=== PATIENT | female | born 1955 | race Caucasian/White ===

== ENCOUNTER 2020-04-04 09:03 | Outpatient (CLI) | payer MEDICARE, SELFPAY ==
--- NOTE | 2020-04-04 09:24 | EST_ITS ---
Patient Info Name: Mimi Box Age: 65 years : 1955 Gender: Female Ht: 65 in Wt: 137 lbs BSA: 1.69 m2 Technical Quality: Good Exam Date: 04/04/2020 9:57 AM Exam Location: [facility] Pulmonary Patient Status: Outpatient Admit Date: 04/04/2020 Staff Ordering Physician: Ra Valencia DO Suction Drum Drier Operator: Sinea Sanchez RDCS Attending Provider: Ra Valencia DO Referring Physician: Erik SEGURA; Exercise Technologist: Jessica Castrejon RDCS Exercise Physician: Ra Valencia DO Exam Type: CA stress echo Study Info Indications R07.9 - Chest pain, unspecified Two-dimensional, color flow imaging, and Doppler interrogation is performed during the stress echocardiogram. Summary 1. 1. Abnormal Santhosh exercise stress test for ischemic ST changes by ECG criteria. 2. 2. Reduced functional capacity, achieving 6 METs of workload, limited by abrupt onset paroxysmal atrial tachycardia during exercise. 3. 3. Baseline hypertension. 4. 4. Paroxysmal atrial tachycardia. 5. 5. Abnormal stress echocardiogram with basal to mid posterior/inferior hypokinesis. 6. 6. Patient informed of the above results. Stress Echo Findings Left Ventricle Basal to mid posterior and inferior tam are hypokinetic. Left Ventricle Normal LV systolic function, no wall motion abnormality. Protocol: Santhosh Stress ECG Details Stage: REST Duration (min): 1 min : 4 sec Speed (mph): 0.0 Grade (%): 0 HR (bpm): 70 SBP (mmHg): 146 DBP (mmHg): 83 METS: --- Stage: REST Duration (min): 10 min : 5 sec Speed (mph): 0.0 Grade (%): 0 HR (bpm): 84 SBP (mmHg): 146 DBP (mmHg): 83 METS: --- Stage: STAGE 1 Duration (min): 1 min : 0 sec Speed (mph): 1.7 Grade (%): 10 HR (bpm): 104 SBP (mmHg): 146 DBP (mmHg): 83 METS: --- Stage: STAGE 1 Duration (min): 2 min : 0 sec Speed (mph): 1.7 Grade (%): 10 HR (bpm): 113 SBP (mmHg): 146 DBP (mmHg): 83 METS: --- Stage: STAGE 1 Duration (min): 3 min : 0 sec Speed (mph): 1.7 Grade (%): 10 HR (bpm): 117 SBP (mmHg): 175 DBP (mmHg): 90 METS: --- Stage: STAGE 2 Duration (min): 1 min : 0 sec Speed (mph): 2.5 Grade (%): 12 HR (bpm): 137 SBP (mmHg): 175 DBP (mmHg): 90 METS: --- Stage: STAGE 2 Duration (min): 1 min : 16 sec Speed (mph): 0.0 Grade (%): 0 HR (bpm): 153 SBP (mmHg): 175 DBP (mmHg): 90 METS: --- Stage: RECOVERY Duration (min): 0 min : 43 sec Speed (mph): 0.0 Grade (%): 0 HR (bpm): 112 SBP (mmHg): 156 DBP (mmHg): 86 METS: --- Stage: RECOVERY Duration (min): 1 min : 43 sec Speed (mph): 0.0 Grade (%): 0 HR (bpm): 85 SBP (mmHg): 156 DBP (mmHg): 86 METS: --- Stage: RECOVERY Duration (min): 2 min : 43 sec Speed (mph): 0.0 Grade (%): 0 HR (bpm): 82 SBP (mmHg): 165 DBP (mmHg): 96 METS: --- Stage: RECOVERY Duration (min): 3 min : 43 s
== END 2020-04-04 09:04 | disposition home or self-care (01) ==
PROVIDERS: PCP Family Medicine; Visit Provider Internal Medicine Cardiovascular Disease
DX: R07.9 Chest pain, unspecified (principal); R93.1 Abnormal findings on diagnostic imaging of heart and coronary circulation
CPT/HCPCS: 93351

== ENCOUNTER 2020-04-15 00:25 | Outpatient (CLI) | payer MEDICARE, SELFPAY ==
[2020-04-15 18:02] LABS: SARS-CoV-2 RNA PCR Negative
== END 2020-04-15 00:26 | disposition home or self-care (01) ==
LOC: ANHCOVIDDT 00:26
PROVIDERS: PCP Family Medicine; Visit Provider Specialist
DX: Z01.812 Encounter for preprocedural laboratory examination (principal); Z20.828 Contact with and (suspected) exposure to other viral communicable diseases
CPT/HCPCS: 87635; C9803; U0003

== ENCOUNTER 2020-04-18 05:25 | Day surgery (SDC) | payer MEDICARE, SELFPAY ==
[2020-04-15 14:57] VITALS: BMI 22.4
[2020-04-18] VITALS (7 sets, daily range): BP systolic 115–133; BP diastolic 69–81; PULSE 55–70; RESP 14–19; TEMP 36.6; O2SAT 97–100
[2020-04-18 07:22] LABS: Basophils Absolute Auto 0.1 K/mm3 (0.0-0.1); Basophils Percent Auto 1.3 % (0.2-1.2); Eosinophils Absolute Auto 0.1 K/mm3 (0-0.3); Eosinophils Percent Auto 1.5 % (0-4.4); Hematocrit 43.4 % (37.0-47.0); Hemoglobin 14.8 g/dL (12.0-15.0); Immature Granulocyte Absolute 0.01 K/mm3 (0.00-0.031); Immature Granulocyte Percent A 0.2 % (0-0.5); Lymphocytes Absolute Auto 2.09 K/mm3 (0.9-3.2); Mean Corpuscular HGB Conc 34.1 g/dl (32-36); Mean Corpuscular Hemoglobin 33.3 pg (26-34); Mean Corpuscular Volume 97.5 fl (80-100); Mean Platelet Volume 9.3 fl (7.4-10.4); Monocytes Absolute Auto 0.3 K/mm3 (0.1-0.6); Monocytes Percent Auto 6.3 % (2.6-8.5); Neutrophils Absolute Auto 2.1 K/mm3 (1.3-6.7); Neutrophils Percent Auto 45.7 % (45.5-73.1); Platelet Count Result 209 k/mm3 (150-375); Red Blood Count 4.45 M/mm3 (4.2-5.4); Red Cell Distribution Width 12.3 % (11.5-14.5); White Blood Count 4.6 K/mm3 (4.5-10.0)
[2020-04-18 07:31] LABS: INR 0.9; Prothrombin Time 12.2 Seconds (11.1-14.7)
[2020-04-18 07:45] LABS: Anion Gap 13 mmol/L (8-16); Blood Urea Nitrogen 14 mg/dL (7-17); Calcium 10.2 mg/dL (8.4-10.2); Carbon Dioxide 29 mmol/L (22-30); Chloride 100 mmol/L (98-107); Estimated CRCL calculation 54 ml/min; Estimated Glomerular Filt Rate > 60; Glucose 104 mg/dL (65-105); Potassium 3.8 mmol/L (3.4-5.0); Sodium 142 mmol/L (137-145)
--- NOTE | 2020-04-18 08:59 | WPDMODSED ---
Moderate Sedation Note-Pt Data Patient Data Diagnosis: Chest pain abnormal stress test Present Complaint: 65-year-old lady who has been having exertional chest pain for approximately 1 year. Symptoms in November getting worse so she mention them recently to her PCP who referred her to Cardiology and a stress echocardiogram was found be abnormal with exercise-induced ST segment depression and inferior wall motion abnormalities. Angiography has been recommended in this setting Procedure to be performed/Plan: left heart catheterization Allergies Allergy/AdvReac Type Severity Reaction Status Date / Time No Known Allergies Allergy Verified 04/15/20 14:59 Home Medications Medication Instructions Recorded Confirmed Type nitrofurantoin macrocrystal 100 mg 100 mg PO Q12H PRN #60 cap 01/12/20 04/15/20 Rx capsule metoprolol succinate 25 mg 25 mg PO DAILY #30 tablet 04/04/20 04/15/20 Rx tablet,extended release 24 hr aspirin 81 mg tablet,delayed 81 mg PO DAILY 04/08/20 04/15/20 History release atorvastatin 10 mg tablet 10 mg PO DAILY #90 tablet 04/12/20 04/15/20 Rx Bifidobacterium infantis [Align] 4 mg PO DAILY 04/15/20 04/15/20 History cholecalciferol (vitamin D3) 25 mcg PO DAILY 04/15/20 04/15/20 History [Vitamin D3] coenzyme Q10 [Co Q-10] 50 mg PO DAILY 04/15/20 04/15/20 History erythromycin 50 mg PO DAILY 04/15/20 04/15/20 History esomeprazole magnesium [Nexium] 20 mg PO DAILY 04/15/20 04/15/20 History folic acid 1 mg PO DAILY 04/15/20 04/15/20 History psyllium husk [Metamucil] 1 tsp PO DAILY 04/15/20 04/15/20 History valacyclovir 2,000 mg PO Q12H PRN 04/15/20 04/15/20 History Current Medications: Active Medications Sodium Chloride (Normal Saline Iv) 500 mls @ 100 mls/hr IV CONT .Q5H LOVELY Sedation/Anesthesia: No previous sedation/anesthesia problems (including family history). [facility] Social History Social History Smoking status: Never smoker Second hand tobacco smoke exposure: No Alcohol intake: current Drinks per week: 1 Substance use: never Substance use type: does not use Living arrangements: with family Gender identity (if verbalized by the patient): Female Sexual Orientation (if Verbalized by the Patient): Straight or Heterosexual Spiritual care concerns: No Mod Sed Physical Exam Physical Exam Pre Procedural Exam: Normal: Appearance, Throat, Airway, Lungs, Heart Size, Heart Rate, Heart Rhythm, Neuro Exam and Extremities Hours since solid foods: 12 Hours since liquid intake: 12 Internal Medicine - PN: Obj Da Vital Signs Vital Signs: Vital Signs - 24 hr 04/18/20 07:20 Temperature 36.6 C Pulse Rate 70 Respiratory Rate 15 Blood Pressure 128/81 Pulse Oximetry 100 Meds/Results Medications: Active Medications Generic Name Dose Route Start Last Admin Trade Name Freq PRN Reason Stop Dose Admin Sodium Chloride 500 mls @ 100 mls/hr 04/18/20 05:55 Normal Saline Iv IV CONT .Q5H LOVELY Labs CBC & Chem 7: 04/18/20 07:16 04/18/20 07:16 Labs: Laboratory Results - last 24 hr 04/18/20 04/18/20 04/18/20 07:16 07:16 07:16 WBC 4.6 RBC 4.45 Hgb 14.8 Hct 43.4 MCV 97.5 MCH 33.3 MCHC 34.1 RDW 12.3 Plt Count 209 MPV 9.3 Immature Gran % (Auto) 0.2 Neut % (Auto) 45.7 Lymph % (Auto) 45.0 H Randall % (Auto) 6.3 Eos % (Auto) 1.5 Baso % (Auto) 1.3 H Lymph # (Auto) 2.09 Randall # (Auto) 0.3 Eos # (Auto) 0.1 Baso # (Auto) 0.1 Abs Immat Gran (auto) 0.01 Absolute Neuts (auto) 2.1 Absolute Nucleated RBC 0.0 Nucleated RBC % 0.0 PT 12.2 INR 0.9 Sodium 142 Potassium 3.8 Chloride 100 Carbon Dioxide 29 Anion Gap 13 BUN 14 Creatinine 0.80 Estim Creat Clear Calc 54 Estimated GFR > 60 Glucose 104 Calcium 10.2 ASA Classification/Sedation ASA Classification/Sedation ASA Class
--- NOTE | 2020-04-18 09:36 | WPDCARDPROC ---
Cardiac Cath Procedure Note Date of procedure:: 04/18/20 Performing physician:: Damian Triana MD Indication:: chest pain, abnormal stress test Brief clinical history:: 65-year-old woman with episodes of chest pain for about 1 year. A stress echocardiogram was found to be abnormal prompting recommendation for angiography Procedure Procedure performed:: left heart catheterization with left ventriculography and coronary angiography Angio-Seal to right femoral artery Sedation/Medication given:: fentanyl 50 mg Versed 2 mg case start time 9:13 a.m. case end time 9:28 a.m. sedation provided by Marie Baker RN, trained observer Access site:: right femoral Estimated blood loss:: 15-20 cc Procedure note:: patient was brought to the cardiac catheterization lab in the postabsorptive state the right femoral triangle was prepared in the usual fashion. Anesthesia was provided with 1% lidocaine infiltrated locally. Using the modified Seldinger technique the femoral artery was punctured and a 5 [place]uran vascular sheath was placed. After this left heart catheterization was carried out. I used a 5 [place] angled pigtail catheter to measure left-sided hemodynamics and injected LV g in the MOTT projection. After this pullback pressures were document across the aortic valve and the pigtail was then removed. A 5 [place] FL4 catheter was used to engage inject the left coronary artery in multiple projections. The 5 [place] JR4 catheter was used to engage inject the right coronary artery. Following this the cine angiograms were reviewed and the case was terminated. An angiogram was done of the femoral artery through the sheath after which a 6 [place] Angio-Seal device was used to secure hemostasis with a good result. She was taken back to the holding area for post cath recovery in stable condition there was no evidence of a groin hematoma upon leaving the geoscience laboratory technician. Findings:: Hemodynamics: Central aortic pressure was 146/68 left ventricle 140 over 0 end-diastolic pressure of 10 there is no systolic gradient on pullback across the aortic valve. Left ventricle: The LV is of normal size all segments contract appropriately the global ejection fraction is 50-55% by visual estimation there were no wall motion abnormalities left main coronary artery is large caliber widely patent the LAD is a moderate caliber vessel extending down to the apex. The proximal LAD has minimal atherosclerotic narrowing of about 20-30%. The remainder of the LAD is normal. Circumflex is a very large caliber artery giving rise to the marginal branches the circumflex is smooth and angiographically normal. The right coronary artery is medium in caliber it bifurcates early in the 2nd portion it is rather tortuous but otherwise angiographically is free of disease. Conclusion:: 1. Right coronary dominant circulation with no evidence of coronary disease 2. normal left ventricular systolic function 3. Angio-Seal to right femoral artery 4. false positive stress test Damian Triana MD [facility]
--- NOTE | 2020-04-18 10:04 | SUR.PHASEII ---
0940-pt has returned from the refuse laborer after an LHC. No distress noted. AOx4. Groin soft and non-tender, no evidence of bleeding or hematoma noted. Strong right pedal pulse noted. Will continue to monitor.
--- NOTE | 2020-04-18 13:23 | SUR.PHASEII ---
1245-pt given D/C orders and instructions. Questions answered and verbalized understanding. AOx4. Groin soft and non-tender, no evidence of bleeding or hematoma noted. Strong right pedal pulse noted. PIv removed intact. Taken via wheelchair to waiting vehicle. No distress noted or verbalized at time of departure.
== END 2020-04-18 12:45 | disposition home or self-care (01) ==
PROVIDERS: PCP Family Medicine; Visit Provider Specialist
PROC: 4A023N7 Measurement of Cardiac Sampling and Pressure, Left Heart, Percutaneous Approach (ICD-10-PCS; CPT 93452; principal; 2020-04-18 08:30)
DX: R94.39 Abnormal result of other cardiovascular function study (principal); R07.9 Chest pain, unspecified; Z79.82 Long term (current) use of aspirin
CPT/HCPCS: 36415; 80048; 85025; 85610; 93458; C1760; C1887; C1894; G0269; J1644; J2250; J3010; J7040

== ENCOUNTER 2020-04-26 08:19 | Outpatient (CLI) | payer MEDICARE, SELFPAY ==
[2020-04-26 08:47] LABS: Alanine Aminotransferase 17 U/L (4-35); Albumin Level 4.7 g/dL (3.5-5.1); Alkaline Phosphatase 62 U/L (38-126); Anion Gap 9 mmol/L (8-16); Aspartate Amino Transferase 26 U/L (14-36); Bilirubin,Total 0.7 mg/dL (0.2-1.3); Blood Urea Nitrogen 16 mg/dL (7-17); Calcium 9.9 mg/dL (8.4-10.2); Carbon Dioxide 30 mmol/L (22-30); Chloride 103 mmol/L (98-107); Cholesterol 232 mg/dL (0-200); Estimated Glomerular Filt Rate > 60; Glucose 103 mg/dL (65-105); HDL Direct 68 mg/dL; Potassium 3.9 mmol/L (3.4-5.0); Sodium 142 mmol/L (137-145); Triglycerides 120 mg/dL (<150)
[2020-04-26 08:58] LABS: LDL Cholesterol Direct 116 mg/dL
== END 2020-04-26 08:20 | disposition home or self-care (01) ==
PROVIDERS: PCP Family Medicine; Visit Provider Internal Medicine Cardiovascular Disease
DX: E78.5 Hyperlipidemia, unspecified (principal)
CPT/HCPCS: 36415; 80053; 80061; 83735

== ENCOUNTER 2020-06-29 02:54 | Emergency (ER) | payer MEDICARE, SELFPAY ==
--- NOTE | ~2020-06-29 | CT_ITS ---
EXAMINATION: CT abdomen pelvis wo/w con DATE: 06/29/2020 04:32 INDICATION: Gross hematuria. TECHNIQUE: Computed tomography (CT) of the abdomen and pelvis was performed without and with intraven ous contrast using a total of 130 mL Omnipaque-350 intravenous contrast with a double-bolus technique for simultaneous opacification of the renal parenchyma and renal collecting system. Automated exposu re control and iterative reconstruction technique were employed. The dose-length product was 767.64 m Gy-cm. COMPARISON: CT abdomen and pelvis 07/06/2017 FINDINGS: The visualized portions of the lung bases demonstrate mild atelectasis. A calcified right lung nodule is consistent with old granulomatous disease. No pleural effusion. The heart size is normal. No rosie cardial effusion. Calcifications in the liver and spleen are consistent with old granulomatous diseas e. There are changes of cholecystectomy. The pancreas and adrenal glands are normal. There is a 5 mm cyst in right kidney. Left kidney is normal. There is no urolithiasis. The ureters are not well opaci fied in their middle thirds, but are normal. There is a urachal remnant at the anterosuperior aspect of the bladder. There are no dilated loops of bowel. The appendix is not visualized. There are no pat hologically enlarged lymph nodes. There is no free intraperitoneal fluid. There is severe lower lumba r spondylosis. IMPRESSION: 1. No etiology for hematuria. Reviewed, dictated and finalized at location B. 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
[2020-06-29 02:57] VITALS: BP 139/100; PULSE 103; RESP 17; TEMP 36.1; O2SAT 100
--- NOTE | 2020-06-29 03:10 | ED.FEMALEGU ---
HPI - Female Genitourinary General Chief complaint: Urogenital-Female Stated complaint: UTI, blood clots in urine Time Seen by Provider: 06/29/20 02:57 Source: patient Mode of arrival: ambulatory Limitations: no limitations History of Present Illness HPI Narrative: This patent is a 65 year old female who presents for evaluation of hematuria. She states starting 1 week ago she developed increased urinary frequency, dysuria and hematuria. She took some left over macrobid for 4 days after symptoms started . She reports her symptoms resolved on Saturday so she stopped taking the macrobid. This morning she developed increased urinary urgency, dysuria and hematuria. She came to ER because she is seeing clots in her urine. She takes aspirin 81 mg but she denies any blood thinners. She denies abdominal pain, back pain, nausea, vomiting or fever. Related Data Home Medications Medication Instructions Recorded Confirmed aspirin 81 mg tablet,delayed 81 mg PO DAILY 04/08/20 04/25/20 release Align 4 mg PO DAILY 04/15/20 04/25/20 Metamucil 1 tsp PO DAILY 04/15/20 04/25/20 cholecalciferol (vitamin D3) 25 mcg PO DAILY 04/15/20 04/25/20 [Vitamin D3] coenzyme Q10 [Co Q-10] 50 mg PO DAILY 04/15/20 04/25/20 erythromycin 50 mg PO DAILY 04/15/20 04/25/20 esomeprazole magnesium [Nexium] 20 mg PO DAILY 04/15/20 04/25/20 folic acid 1 mg PO DAILY 04/15/20 04/25/20 valacyclovir 2,000 mg PO Q12H PRN 04/15/20 04/25/20 Allergies Allergy/AdvReac Type Severity Reaction Status Date / Time No Known Allergies Allergy Verified 06/29/20 03:09 Review of Systems Review of Systems: All systems reviewed & are unremarkable except as noted in HPI and below Constitutional: Constitutional: Denies chills Respiratory: Respiratory: Denies cough and Denies dyspnea Gastrointestinal: Gastrointestinal: Denies abdominal pain, Denies diarrhea, Denies nausea and Denies vomiting Genitourinary: Genitourinary: Denies abnormal vaginal bleeding, Reports hematuria, Reports nocturia and Reports dysuria Musculoskeletal: Musculoskeletal: Denies back pain [facility] Past Medical History Medical History (Updated 12/09/20 @ 05:46 by Tammy Carrion MD) Dyslipidemia Hypertension Surgical History Surgical History (Updated 06/29/20 @ 05:42 by Tammy Carrion MD) H/O cardiac catheterization Social History Social History Smoking status: Never smoker Second hand tobacco smoke exposure: No Alcohol intake: current Drinks per week: 1 Substance use: never Substance use type: does not use Gender identity (if verbalized by the patient): Female Spiritual care concerns: No Exam Const: General: no acute distress and alert Orientation/consciousness: patient oriented x3 HENMT: Head: atraumatic Face and sinus: face symmetric Mouth: Yes lip normal, Yes oropharynx normal and Yes moist mucous membranes Eyes: EOM: EOMs intact bilaterally Resp: Effort & Inspection: normal respiratory effort, no retractions and no use of accessory muscles Auscultation: clear to auscultation bilaterally Cardio: Rate: regular rate Rhythm: regular rhythm Heart sounds: no murmurs GI: GI Palp: Yes Soft to palpation, No Tenderness to palpation present (GI) and No Guarding due to palpation present (GI) Auscultation: normal bowel sounds Skin: General skin exam: normal color Rashes: no rashes Neuro: General: patient oriented x3 and moves all extremities Extrem: General: normal to inspection Psych: Mental Status: mental status grossly normal Affect: normal affect Course Reevaluation(s) Reevaluation #1: PAtient states she feels better. Her urine is starting to clear. She just urinated and she states its only blood tinged no clots. She no long feels bladder pressure Date: 06/29/20 Time: 05:42 Consultations Consultation #1: I Discussed case with DR. Mckay who agrees patient can be discharge if she is
[2020-06-29 03:35] LABS: Appearance Urine Turbid (Clear); Color Urine Red (Yellow); Specific Grav Ur 1.011 (1.001-1.035)
[2020-06-29 03:38] LABS: Basophils Absolute Auto 0.1 K/mm3 (0.0-0.1); Basophils Percent Auto 0.6 % (0.2-1.2); Eosinophils Absolute Auto 0.2 K/mm3 (0-0.3); Eosinophils Percent Auto 1.8 % (0-4.4); Hematocrit 40.6 % (37.0-47.0); Hemoglobin 13.7 g/dL (12.0-15.0); Immature Granulocyte Absolute 0.02 K/mm3 (0.00-0.031); Immature Granulocyte Percent A 0.2 % (0-0.5); Lymphocytes Absolute Auto 2.68 K/mm3 (0.9-3.2); Lymphocytes Percent Auto 32.8 % (18.3-44.2); Mean Corpuscular HGB Conc 33.7 g/dl (32-36); Mean Corpuscular Hemoglobin 33.4 pg (26-34); Mean Platelet Volume 8.9 fl (7.4-10.4); Monocytes Absolute Auto 0.6 K/mm3 (0.1-0.6); Monocytes Percent Auto 7.1 % (2.6-8.5); Neutrophils Absolute Auto 4.7 K/mm3 (1.3-6.7); Neutrophils Percent Auto 57.5 % (45.5-73.1); Platelet Count Result 206 k/mm3 (150-375); Red Cell Distribution Width 12.5 % (11.5-14.5); White Blood Count 8.2 K/mm3 (4.5-10.0)
[2020-06-29 03:42] LABS: Blood Urine 3+ (Negative); Glucose Urine UA Unable to determine mg/dL (Negative); Protein Urine Unable to determine mg/dL (Negative); pH Urine Unable to determine (5.0-9.0)
[2020-06-29 03:43] LABS: Add Urine Microscopic? YES; Bilirubin Urine Unable to determine (Negative); Ketones Urine Unable to determine mg/dL (Negative); Leukocyte Esterase Ur Unable to determine LEU/UL (Negative); Nitrate Urine Unable to determine (Negative); Urobilinogen Urine Unable to determine mg/dL (<2.0)
[2020-06-29] MEDS: LACTATED RINGERS 1,000 ML 999 ML IV CONT (03:43)
[2020-06-29 03:44] LABS: Bacteria Urine Unable to determine /hpf; RBC Urine >75 /hpf (0-2); Squamous Epithelial Cell Urine Unable to determine /hpf (Few); WBC Urine Unable to determine /hpf (0-3)
[2020-06-29 03:54] LABS: Alanine Aminotransferase 18 U/L (4-35); Albumin Level 4.5 g/dL (3.5-5.1); Alkaline Phosphatase 67 U/L (38-126); Anion Gap 8 mmol/L (8-16); Aspartate Amino Transferase 26 U/L (14-36); Bilirubin,Total 0.6 mg/dL (0.2-1.3); Blood Urea Nitrogen 15 mg/dL (7-17); Calcium 9.8 mg/dL (8.4-10.2); Carbon Dioxide 29 mmol/L (22-30); Chloride 101 mmol/L (98-107); Estimated Glomerular Filt Rate > 60; Glucose 120 mg/dL (65-105); Potassium 3.8 mmol/L (3.4-5.0); Sodium 138 mmol/L (137-145)
[2020-06-29 03:55] LABS: INR 0.9; Partial Thromboplastin Time 22.4 SECONDS (22.3-36.8); Prothrombin Time 12.3 Seconds (11.1-14.7)
[2020-06-29 05:33] VITALS: BP 146/82; PULSE 98; RESP 16; O2SAT 100
== END 2020-06-29 06:10 | disposition home or self-care (01) ==
PROVIDERS: Emergency Provider General Practice; PCP Family Medicine
DX: R31.0 Gross hematuria (principal); I10 Essential (primary) hypertension; E78.5 Hyperlipidemia, unspecified
CPT/HCPCS: 36415; 74178; 80053; 81001; 85025; 85610; 85730; 87086; 96360; 99284; J7120; Q9967

== ENCOUNTER 2020-12-12 09:40 | Outpatient (CLI) | payer MEDICARE, SELFPAY ==
[2020-12-12 10:15] LABS: Cholesterol 235 mg/dL (0-200); HDL Direct 87 mg/dL; Triglycerides 91 mg/dL (<150)
[2020-12-12 10:22] LABS: LDL Cholesterol Direct 101 mg/dL
== END 2020-12-12 09:41 | disposition home or self-care (01) ==
PROVIDERS: Visit Provider Internal Medicine Cardiovascular Disease
DX: E78.5 Hyperlipidemia, unspecified (principal)
CPT/HCPCS: 36415; 80061

== ENCOUNTER 2022-07-05 17:39 | Outpatient (CLI) | payer MEDICARE, SELFPAY ==
--- NOTE | ~2022-07-05 | MM_ITS ---
EXAMINATION: MM screening deena BI w arline HISTORY: Screening TECHNIQUE: Craniocaudal and mediolateral oblique 3-D tomosynthesis images were obtained and synthetic 2-D images were generated. CAD analysis was submitted and interpreted. COMPARISON: Comparison to multiple prior studies sequentially, with oldest reviewed study dated 02/05. BREAST PARENCHYMAL COMPOSITION: The breasts are heterogeneously dense, which may obscure small masses . FINDINGS: Stable benign-appearing breast calcifications. There is no evidence of suspicious mass, pinky cification, or architectural distortion to suggest malignancy in either breast. There has been no trevor picious interval change. IMPRESSION: 1. No mammographic evidence of malignancy. 2. Recommend routine screening mammography in one year. BI-RADS Category 2: Benign finding(s). Reviewed, dictated and finalized at location B. F EXECUTIVE
== END 2022-07-05 17:40 | disposition home or self-care (01) ==
PROVIDERS: PCP Family Medicine; Visit Provider Family Medicine
DX: Z12.31 Encounter for screening mammogram for malignant neoplasm of breast (principal)
CPT/HCPCS: 77063; 77067

== ENCOUNTER 2022-07-07 09:55 | Emergency (ER) | payer MEDICARE, SELFPAY ==
[2022-07-07 10:52] VITALS: BP 136/76; PULSE 71; RESP 16; TEMP 36.1; O2SAT 99
--- NOTE | 2022-07-07 10:56 | ED.FEMALEGU ---
HPI - Female Genitourinary General Chief complaint: Urogenital-Female Stated complaint: uti Time Seen by Provider: 07/07/22 10:56 Source: patient, RN notes reviewed and old records reviewed Mode of arrival: ambulatory Limitations: no limitations History of Present Illness HPI Narrative: 67-year-old female presents to the [facility] with urinary symptoms has a history of chronic UTIs. States that she ran out of her as needed Macrobid. Reports blood in her urine, urinary frequency, urgency and burning with urination. Denies abdominal pain, chest pain. Denies fevers. No CVA tenderness Related Data Home Medications Medication Instructions Recorded Confirmed Bifidobacterium infantis 4 mg 4 mg PO DAILY 04/15/20 07/07/22 capsule (Align) cholecalciferol (vitamin D3) 25 25 mcg PO DAILY 04/15/20 07/07/22 mcg (1,000 unit) capsule (Vitamin D3) esomeprazole magnesium 20 mg 20 mg PO DAILY 04/15/20 07/07/22 capsule,delayed release (Nexium) psyllium husk 3.4 gram/5.4 gram 1 tsp PO DAILY 04/15/20 07/07/22 oral powder (Metamucil) vitamin B complex (B 1 tablet PO DAILY 01/02/22 07/07/22 Complex-Vitamin B12 tablet) Allergies Allergy/AdvReac Type Severity Reaction Status Date / Time No Known Allergies Allergy Verified 07/07/22 11:01 Review of Systems Review of Systems: All systems reviewed & are unremarkable except as noted in HPI and below Constitutional: Constitutional: Reports no additional constitutional complaints Eyes: Eyes: Reports no additional eye complaints ENT: Reports system reviewed and no additional complaints, except as documented Cardiovascular: Cardiovascular: Reports no additional cardiovascular complaints, Denies chest pain and Denies dyspnea Respiratory: Respiratory: Reports no additional respiratory complaints, Denies chest congestion, Denies cough and Denies dyspnea Gastrointestinal: Gastrointestinal: Reports no additional gastrointestinal complaints, Denies abdominal pain, Denies nausea and Denies vomiting Genitourinary: Genitourinary: Reports as per HPI, Reports hematuria and Reports dysuria Musculoskeletal: Musculoskeletal: Reports no additional musculoskeletal complaints Integumentary/Breasts: Skin/Breast: Reports system reviewed and no additional complaints, except as docu Neurologic: Reports system reviewed and no additional complaints, except as documented Psychiatric: Psychiatric: Reports no additional psychiatric complaints Allergic/Immunologic: Allergic/Immunologic: Reports no additional allergic/immunologic complaints PMFSH Past Medical History Medical History Dyslipidemia Hypertension Surgical History Surgical History H/O cardiac catheterization H/O hysterectomy with oophorectomy Social History Social History Smoking status: Never smoker Second hand tobacco smoke exposure: No Alcohol intake: current Drinks per week: 1 Substance use: never Substance use type: does not use Lack of Transportation: No Lack of Food: Never True Current Housing: I Have Housing Concerned About Future Housing: No Difficulty Paying Gas/Electric Bills: No Difficulty Paying for Meds: No Currently Unemployed: No Education: Associate Degree Difficulty w/ Childcare or Family Care: No Gender identity (if verbalized by the patient): Female Sexual Orientation (if Verbalized by the Patient): Straight or Heterosexual Spiritual care concerns: No Agree to blood products: Yes Comments At the time of my signature, I reviewed and agree with the nursing past medical, surgical, social, and family history. There is no relevant family history pertinent to the patient complaint. Exam Const: General: cooperative, healthy appearing, comfortable, no acute distress, well developed, alert and well nourished
== END 2022-07-07 11:10 | disposition home or self-care (01) ==
PROVIDERS: Emergency Provider Nurse Practitioner; PCP Family Medicine
DX: N39.0 Urinary tract infection, site not specified (principal); E78.5 Hyperlipidemia, unspecified; I10 Essential (primary) hypertension
CPT/HCPCS: 81003; 87086; 99213; G0463

== ENCOUNTER 2022-07-24 13:43 | Outpatient (CLI) | payer MEDICARE, SELFPAY ==
--- NOTE | ~2022-07-24 | XR_ITS ---
EXAM: XR abdomen/kub 1V DATE: 07/24/2022 14:12 HISTORY: GROSS HEMATURIA, blood in urine since , denies pain . COMPARISON: None available. FINDINGS: Cholecystectomy clips. Clear lung bases. Normal bowel gas pattern. No organomegaly. Pelvic phlebolithsr. Regional bones and soft tissues normal for age. IMPRESSION: Unremarkable abdominal radiograph findings. Reviewed, dictated and finalized at location K. [employer] MARKET INTELLIGENCE
--- NOTE | ~2022-07-24 | CT_ITS ---
CT of the Abdomen and Pelvis: Indication: Gross hematuria Technique: 2.5 mm axial scans were obtained through the abdomen and pelvis prior to and following in travenous administration of 130 cc of Omnipaque 350. Dose reduction technique was used on this scan b y utilizing automated exposure control and iterative reconstruction technique. The dose-length produc t (DLP) was 893.70 mGy-cm. COMPARISON: 06/29/2020 Findings: Scans through the lung bases are unremarkable. The liver, spleen, pancreas, adrenals and kidneys are within normal limits. Cholecystectomy clips pre sent. No evidence of aortic aneurysm. No lymphadenopathy. No bowel obstruction or bowel wall thickening. There is no evidence to suggest acute appendicitis. Images through the pelvis were performed. Urinary bladder unremarkable. Visualized ureters unremarkab le. No adnexal mass evident. No ascites. Impression: No significant abnormalities seen. No explanation for hematuria identified on this exam. Reviewed, dictated and finalized at location . TICING MD ANESTHESIOLOGIST Impression: No significant abnormalities seen. No explanation for hematuria identified on t his exam.
[2022-07-24 14:18] LABS: Estimated Glomerular Filt Rate > 60
== END 2022-07-24 13:44 | disposition home or self-care (01) ==
PROVIDERS: PCP Family Medicine; Visit Provider Nurse Practitioner Family
DX: R31.0 Gross hematuria (principal)
CPT/HCPCS: 74018; 74178; Q9967

== ENCOUNTER 2023-07-29 08:21 | Outpatient (CLI) | payer MEDICARE, SELFPAY ==
--- NOTE | ~2023-07-29 | NM_ITS ---
EXAMINATION: NM izaiah stress w perfusion DATE: 07/29/2023 11:39 INDICATION: Chest pain. TECHNIQUE: Rest images were obtained following intravenous administration of 10.5 mCi Tc99m tetrofosm in (Myoview). The patient was infused intravenously with Lexiscan (regadenoson). Then, 32.7 mCi Tc99m tetrofosmin (Myoview) was administered intravenously, and stress images were obtained. Data was deangelo nstructed into short axis and horizontal and vertical long axis SPECT images. Gated SPECT images were also obtained. COMPARISON: CT abdomen and pelvis 07/24/2022 FINDINGS: There is no definite reversible or fixed perfusion abnormality to suggest ischemia or infar ction. There is no segmental wall motion abnormality. Left ventricular ejection fraction measures > 70%. IMPRESSION: 1. No definite ischemia or infarct. 2. Normal left ventricular ejection fraction measuring > 70%. Reviewed, dictated and finalized at location A. R MANAGER
--- NOTE | 2023-07-29 09:15 | EST_ITS ---
Patient Info Name: Mimi Box Age: 68 years : 1955 Gender: Female Ht: 65 in Wt: 143 lbs BSA: 1.73 m2 HR: 65 bpm BP: 121 / 84 mmHg Exam Date: 07/29/2023 9:20 AM Exam Location: Echo Lab Patient Status: Outpatient Admit Date: 07/29/2023 Staff Ordering Physician: Ra Valencia DO Attending Provider: Ra Valencia DO Exercise Technologist: Rosemary Mishra RDCS Exercise Physician: Ra Valencia DO Exam Type: CA stress izaiah w NM Study Info A regadenoson stress test was performed. Summary 1. 1. Negative lexiscan stress test for ischemic ST changes by ECG criteria. 2. 2. Stable hemodynamics throughout the test. 3. 3. Nuclear scan to follow and will be reported separately. Please correlate with it. 4. 4. Patient informed of the above results. Protocol: Lexiscan Stress ECG Details Stage: REST Duration (min): 1 min : 18 sec HR (bpm): 65 SBP (mmHg): 121 DBP (mmHg): 84 Stage: REST Duration (min): 9 min : 41 sec HR (bpm): 74 SBP (mmHg): 121 DBP (mmHg): 84 Stage: STAGE 1 Duration (min): 0 min : 59 sec HR (bpm): 103 SBP (mmHg): 142 DBP (mmHg): 74 Stage: RECOVERY Duration (min): 1 min : 0 sec HR (bpm): 104 SBP (mmHg): 142 DBP (mmHg): 74 Stage: RECOVERY Duration (min): 2 min : 0 sec HR (bpm): 98 SBP (mmHg): 142 DBP (mmHg): 74 Stage: RECOVERY Duration (min): 3 min : 0 sec HR (bpm): 89 SBP (mmHg): 128 DBP (mmHg): 74 Stage: RECOVERY Duration (min): 4 min : 0 sec HR (bpm): 84 SBP (mmHg): 128 DBP (mmHg): 74 Stage: RECOVERY Duration (min): 5 min : 0 sec HR (bpm): 81 SBP (mmHg): 128 DBP (mmHg): 75 Stage: RECOVERY Duration (min): 5 min : 35 sec HR (bpm): 80 SBP (mmHg): 128 DBP (mmHg): 75 Rest HR: 74 bpm Peak HR: 104 bpm Rest Sys BP: 121 mmHg Peak Sys BP: 142 mmHg Max Pred HR: 151 bpm % Max Pred HR: 69 % Target HR: 128 bpm Max RPP: 14,768 bpm*mmHg Termination Reason: Completed protocol Cardiac Symptoms: Chest discomfort, Shortness of breath, Lightheaded/pre-syncope Total Time: 1 min : 0 sec Rest [place] BP: 84 mmHg Peak [place] BP: 74 mmHg Total Dose: 0.4 mg Resting ECG Sinus rhythm. Stress ECG No ST changes. Arrhythmias None. Report Signatures
== END 2023-07-29 08:22 | disposition home or self-care (01) ==
PROVIDERS: PCP Family Medicine; Visit Provider Internal Medicine Cardiovascular Disease
DX: R07.9 Chest pain, unspecified (principal)
CPT/HCPCS: 78452; 93017; A9502; J2785

== ENCOUNTER 2024-07-13 09:47 | Outpatient (CLI) | payer MEDICARE, SELFPAY ==
--- NOTE | ~2024-07-13 | MM_ITS ---
EXAMINATION: MM screening [facility] BI w arline HISTORY: Screening TECHNIQUE: Craniocaudal and mediolateral oblique 3-D tomosynthesis images were obtained and synthetic 2-D images were generated. CAD analysis was submitted and interpreted. COMPARISON: 07/05/2022 and dating back to 02/06/2016 BREAST PARENCHYMAL COMPOSITION: The breasts are heterogeneously dense, which may obscure small masses . FINDINGS: Bulky and punctate calcifications detected bilaterally, stable and benign in appearance. Stable parenchymal pattern without suspicious microcalcifications, architectural distortion, discrete masses or significant asymmetry. IMPRESSION: 1. No mammographic evidence of malignancy. 2. Recommend routine screening mammography in one year. BI-RADS Category 2: Benign finding(s). Reviewed, dictated and finalized at location A. ECTRIC MACHINE OPERATOR
== END 2024-07-13 09:48 | disposition home or self-care (01) ==
LOC: ANHIMG 09:48
PROVIDERS: PCP Family Medicine; Visit Provider Student in an Organized Health Care Education/Training Program
DX: Z12.31 Encounter for screening mammogram for malignant neoplasm of breast (principal)
CPT/HCPCS: 77063; 77067

== ENCOUNTER 2024-08-03 08:15 | Outpatient (CLI) | payer MEDICARE, SELFPAY ==
--- NOTE | ~2024-08-03 | DEXA_ITS ---
Bone Density Report Name: LORI SHELL Age: 69 Sex: Female Ethnicity: White Date of : 1955 Indication: postmenopausal; screening for osteoporosis; Referring Provider: CHYNA LAMBERT Study: Bone densitometry was performed. Exam Date: August 03, 2024 Accession number: [id number] Bone Density: Region BMD T-score Z-score Classification AP Spine(L1-L4) 0.810 -2.2 0.0 Osteopenia Femoral Neck (Left) 0.637 -1.9 -0.1 Osteopenia Total Hip (Left) 0.791 -1.2 0.3 Osteopenia Femoral Neck (Right) 0.630 -2.0 -0.2 Osteopenia Total Hip (Right) 0.808 -1.1 0.4 Osteopenia Total Hip Mean 0.800 -1.2 0.4 Osteopenia World Health Organization criteria for BMD impression classify patients as: Normal (T-score at or above -1.0), Osteopenia (T-score between -1.0 and -2.5), or Osteoporosis (T-score at or below -2.5). 10-year Fracture Risk(1): Major Osteoporotic Fracture 11% Hip Fracture 2.2% Reported Risk Factors: [place] (), Neck BMD=0.630, BMI=24.0 (1) FRAX(R) Version 3.08. Fracture probability calculated for an untreated patient. Fracture probability may be lower if the patient has received treatment. Previous Exams: Region Exam Age BMD T-score BMD Change BMD Change Date g/cm2 vs Baseline vs Previous AP Spine (L1-L4) 08/03/2024 69 0.810 -2.2 -0.158 (-16.3% -0.158 (-16.3% 02/06/2016 60 0.968 -0.7 Total Hip(Left) 08/03/2024 69 0.791 -1.2 -0.047 (-5.6%) -0.047 (-5.6%) 02/06/2016 60 0.838 -0.9 Total Hip(Right) 08/03/2024 69 0.808 -1.1 -0.036 (-4.3%) -0.036 (-4.3%) 02/06/2016 60 0.844 -0.8 *Denotes significance at 95% confidence level, LSC for AP Spine = 0.022 g/cm2, LSC for Total Hip = 0.027 g/cm2 Impression: The patient has low bone mass, based on the Total Spine T-score. The patient has an estimated ten-year risk of hip fracture of 2.2% and an estimated ten-year risk of major fracture of 11%, based on the WHO FRAX algorithm. The BMD for the AP Spine (L1-L4) decreased, changing by -16.3% since the last DXA exam. The BMD for the Total Hip(Left) decreased, changing by -5.6% since the last DXA exam. The BMD for the Total Hip(Right) decreased, changing by -4.3% since the last DXA exam. Discussion: BONE DENSITY IS LOW AT ONE OR MORE SKELETAL SITES. This patient's lowest T-score is low at one or more skeletal sites. It meets the World Health Organization's (WHO) criteria for ?low bone mass? (T-score between -1.0 and -2.5). The patient's 10-year risk of fracture as calculated by FRAX is less than the threshold where pharmacological therapy is recommended by the National Osteoporosis Foundation (NOF). However, all treatment decisions require clinical judgment and consideration of individual patient factors, including patient preferences, comorbidities, previous drug use, risk factors not captured in the FRAX model (e.g., frailty, falls, vitamin D deficiency, increased bone turnover, interval significant decline in bone density) and possible under or overestimation of fracture risk by FRAX. The patient should follow a healthful lifestyle (good nutrition with adequate calcium and vitamin D, and appropriate weight-bearing exercise). Follow-Up: Consider repeating this study in 2 years to reassess this patient's status, or sooner if there is some new clinical indication. Reported by: NATALIE on 08/03/2024 8:55:00 AM. Reviewed, dictated and finalized at location AKirk MATHIAS
== END 2024-08-03 08:16 | disposition home or self-care (01) ==
LOC: ANHIMG 08:20
PROVIDERS: PCP Family Medicine; Visit Provider Student in an Organized Health Care Education/Training Program
DX: M85.89 Other specified disorders of bone density and structure, multiple sites (principal); Z78.0 Asymptomatic menopausal state
CPT/HCPCS: 77080

== ENCOUNTER 2024-09-08 09:48 | Outpatient (CLI) | payer MEDICARE, SELFPAY ==
--- NOTE | ~2024-09-08 | XR_ITS ---
EXAMINATION: XR knee RT min 4V DATE: 09/08/2024 10:22 INDICATION: Right knee pain. TECHNIQUE: 4 views of right knee including standing views were obtained. COMPARISON: None. FINDINGS: Alignment is normal. No fracture. There is mild osteoarthritis of medial and patellofemoral compartments. No knee joint effusion. IMPRESSION: 1. Mild right knee osteoarthritis. Reviewed, dictated and finalized at location A. ITE SANDBLASTER APPRENTICE
--- OUTSIDE RECORDS SUMMARY | 2024-09-08 10:02 | XMS_ITS | Clinical Summary ---
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
--- OUTSIDE RECORDS SUMMARY | 2024-09-08 10:02 | XMS_ITS | Continuity of Care Document ---
Author Organization [facility] Address [address] [place] [address] Phone Care Team Providers Care Online Project Manager Name Role Phone Duncan Jorge MD Unavailable Unavailable Advance Directives Directive Yes / No Effective Date File Name No Information Encounters Encounter Description Practice Location Reason(s) For Visit Diagnoses Date Provider Providers Copied on Encounter [facility], [address], [place], [place], [id number], tel:[phone] [facility] No Information Ania Song. [address] , [facility] [address], [place], [address], [place]. tel:[phone] [employer] [facility], [address], [place], [place], [address], tel:[phone] [facility] Family history of pancreatic cancer Ania Song. [address], [address], [place], [address], . tel: [phone] Family History Family Member Type Diagnosis Age At Onset No Information Payers Payer name Insurance type Covered alliance party ID Authoriza tion(s) No Information Social History Type Description Quantity Date Captured Comments Sex Female Smoking Status No Information Chief Complaint And Reason For Visit No Information Reason For Referral Reason For Referral No Information History Of Present Illness Encounter Date Complaint History Of Prese nt Illness No Information Functional Status Date Functional Assessmen t No Information Instructions Date Instruction Additional Infor mation No Information Assessments Type Assessment Date No Information Patient Care Teams Name Effective Dates (start - stop) Status Members No Information
--- OUTSIDE RECORDS SUMMARY | 2024-09-08 10:02 | XMS_ITS | Encounter Summary ---
Author Organization [facility] Address 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 Gender Identity Not on file Sexual Orientation Not on file documented as of this encounter Plan of Treatment Not on file documented as of this encounter Procedures Procedure Name Priority Date/Time Associated Diagnosis Comments HEMOGLOBIN AND HEMATOCRIT Routine 07/13/2008 5:20 AM LOCKSTITCH ZIPPER SETTER PATHOLOGY Routine 07/12/2008 11:32 AM LOCKSTITCH ZIPPER SETTER HEMOGLOBIN AND HEMATOCRIT Routine 07/01/2008 2:20 PM LOCKSTITCH ZIPPER SETTER BASIC METABOLIC PANEL Routine 07/01/2008 2:20 PM LOCKSTITCH ZIPPER SETTER TYPE AND SCREEN Routine 07/01/2008 1:55 PM LOCKSTITCH ZIPPER SETTER documented in this encounter Results * (ABNORMAL) HEMOGLOBIN AND HEMATOCRIT (07/13/2008 5:20 AM LOCKSTITCH ZIPPER SETTER) HEMOGLOBIN 11.6(L) 11.8 - 14.8 g/dL [facility] HEMATOCRIT 34.5(L) 35.5 - 44.0 % [facility] Blood specimen (specimen) 07/13/2008 5:20 AM LOCKSTITCH ZIPPER SETTER 07/13/2008 5:41 AM LOCKSTITCH ZIPPER SETTER us Bhavani Singleton MD HEMATOLOGY ORDERABLES Final Re sult INTERFACE SYSTEM Refer to clinic/hospital department [facility] CLIA# [id number] [address] [place] [address] * PATHOLOGY (07/12/2008 11:32 AM LOCKSTITCH ZIPPER SETTER) FINAL REPORT [facility] [address], [place] [address] Patient: MIMI BOX : 1955 Procedure Date: 07/12/2008 Accession Date: 07/12/2008 Case No: [id number] Ordering Dr: BHAVANI SINGLETON Case types AW, BW, FW, NW and SH are performed by [facility] [place], [place], [place] SURGICAL PATHOLOGY & NON-GYNECOLOGIC CYTOPATHOLOGY REPORT DIAGNOSIS UTERUS, ENDOMETRIUM, SUPRACERVICAL HYSTERECTOMY: - ATROPHIC PATTERN. - ENDOMETRIAL POLYPS. UTERUS, MYOMETRIUM, SUPRACERVICAL HYSTERECTOMY: - ADENOMYOSIS. - LEIOMYOMAS. OVARY AND FALLOPIAN TUBE, LEFT, EXCISION: - NO SIGNIFICANT HISTOPATHOLOGIC ABNORMALITIES. SKIN AND SOFT TISSUE, NOT OTHERWISE SPECIFIED, EXCISION: - SCAR. Specimen Description: Uterus, left fallopian tube and ovary. Operative Procedure: Abdominal hysterectomy; supracervical LSO. Patient Information/Histor y/Diagnosis: Menorrhagia and fibroids. Gross: Received in a single container, labeled Mimi Box., uterus, left fallopian tube and ovary is a 63-g, 5.0 x 4.5 x 4.0-cm uterus without a cervix, and an attached ovary and fallopian tube. The serosa is loving-pink, smooth and glistening. The margin is inked. The uterus is bivalved to reveal a 3.8 x 2.2-cm triangular endometrial cavity. There is no definite endocervix. The uterus is serially sectioned to reveal a loving, endometrium that is 0.1 cm in thickness, and a pink, mildly trabeculated myometrium with no gross lesions. The ovary measures 3.1 x 0.8 x 0.7 cm and the attached fimbriated fallopian tube is 3.0 cm in length x 0.3 cm in diameter. The ovarian capsule is loving, nodular and intact. On sectioning, the ovary has loving, unremarkable cut surfaces. The fallopian tube is sectioned to reveal pinpoint unremarkable lumen. Also present is a 14.5 x 2.8-cm loving unoriented skin ellipse, excised to a depth of 2.0 cm. The skin surface bears a well-healed linear scar that measures 11.0 cm in length. The tissue is inked blue at its margin and sectioned to reveal unremarkable fibroadipose tissue cut surface. Knowledge Management Consultant sections are submitted in cassettes a follows: A1 and A2, lower uterine segment sections; A3-A4- endomyometrium with serosa; A5-ovary and fallopian tube; A6-A7-loose skin. [facility] 07.12.2008 06:27 pm Microscopic: The slides are labeled [id number] and Mimi Box. The uterus has been transected in the lower uterine segment. The cervix is not included in the specimen. The endometrium is atrophic with endometrial polyps. Foci of adenomyosis and leiomyomas, one partially transected, are present in the myometrium. There are no significant histopathologic abnormalities in the left ovary or fallopian tube. Sections of the skin show a scar. [facility] 07.13.2008 10:49 am Staging Form: No. ELECTRONIC SIGNATURE FOR HANNAH FUENTES M.D.- 07/13/08 02:48 pm INTERFACE SYSTEM 07/12/2008 11:3 2 AM LOCKSTITCH ZIPPER SETTER us Bhavani Singleton MD PATHOLOGY/CYTOLOGY ORDERABLES Final Result INTERFACE SYSTEM Refer to clinic/hospital department * (ABNORMAL) BASIC METABOLIC PANEL (07/01/2008 2:20 PM LOCKSTITCH ZIPPER SETTER) CALCIUM 9.8 8.6 - 10.2 mg/dL [facility] CO2 25 22 - 30 mmol/L [facility] CREATININE 0.81 0.51 - 0.95 mg/dL [facility] POTASSIUM 4.4 3.5 - 4.9 mmol/L [facility] BUN 22(H) 6 - 20 mg/dL [facility] CHLORIDE 104 96 - 108 mmol/L [facility] GLUCOSE 92 65 - 99 mg/dL [facility] SODIUM 140 135 - 145 mmol/L [facility] GFR, >60 >=60 mL/min/1.7 sq meter [facility] GFR >60 >=60 mL/min/1.7 sq meter [facility] Comment: Modification of Diet in Renal Disease (MDRD) study formula. Estimated GFR rate interpretative information for both Americans and non- Americans is available on the [facility] Intranet at: [email or web address] Select: Lab Policies and Procedures Select: Reference Ranges - GFR Blood specimen (specimen) 07/01/2008 2:20 PM LOCKSTITCH ZIPPER SETTER 07/01/2008 4:18 PM LOCKSTITCH ZIPPER SETTER Result [facility] Bhavani Singleton MD CHEMISTRY ORDERABLES Edited INTERFACE SYSTEM Refer to clinic/hospital department [facility] CLIA# [id number] [address] [facility] [place] [address] * HEMOGLOBIN AND HEMATOCRIT (07/01/2008 2:20 PM LOCKSTITCH ZIPPER SETTER) HEMOGLOBIN 13.8 11.8 - 14.8 g/dL [facility] HEMATOCRIT 41.3 35.5 - 44.0 % [facility] Blood specimen (specimen) 07/01/2008 2:20 PM LOCKSTITCH ZIPPER SETTER 07/01/2008 4:18 PM LOCKSTITCH ZIPPER SETTER Bhavani Singleton MD HEMATOLOGY ORDERABLES Final Re sult Performing Organization Address City/[facility] de Phone Number INTERFACE SYSTEM Refer to clinic/hospital department [facility] CLIA# [id number] [address] [place] [address] * TYPE AND SCREEN (07/01/2008 1:55 PM LOCKSTITCH ZIPPER SETTER) HISTORY CHECK No Historical ABO/Rh [facility] SPECIMEN LIFE 3 days from OR date [facility] ABO/RH TYPE A Negative [facility] ANTIBODY SCREEN Negative [facility] Blood specimen (specimen) 07/01/2008 1:55 PM LOCKSTITCH ZIPPER SETTER us Bhavani Singleton MD BLOOD BANK ORDERABLES Edited Performing Organization Address [facility] Co de Phone Number INTERFACE SYSTEM Refer to clinic/hospital department [facility] CLIA# [id number] [address] [place] [address] documented in this encounter Visit Diagnoses Diagnosis Postmenopausal bleeding documented in this encounter
--- OUTSIDE RECORDS SUMMARY | 2024-09-08 10:04 | XMS_ITS | Referral Summary ---
Author Organization [facility] Address [address] [place] [address] Care Team Providers Care Billing Auditor Name Role Phone Unavailable Primary Care Provider Unavailabl e Source Comments [facility],non-owned Affiliates and Associated Physician Practices is amultiple site organization consisting of ambulatory clinics and hospital sitesin [place], [place], [place] and [place]. This disclosure is being madepursuant to the Care Everywhere program and may not contain all information available regarding this patient. Last updated 18.[facility] Social History Tobacco Use Types Packs/Day Years Used Date Smoking Tobacco: Never Assessed Sex and Gender Information Value Date Recorded Sex Assigned at Not on file Gender Identity Not on file Sexual Orientation Not on file Plan of Treatment Not on file
--- OUTSIDE RECORDS SUMMARY | 2024-09-08 10:04 | XMS_ITS | Patient Health Summary ---
Author Organization [facility] Address [address] [place] [address] Care Team Providers Care Whirley Operator Name Role Phone Unavailable Primary Care Provider Unavailabl e Note from [facility],non-owned Affiliates and Associated Physician Practices is amultiple site organization consisting of ambulatory clinics and hospital sitesin [place], [place], [place] and [place]. This disclosure is being madepursuant to the Care Everywhere program and may not contain all information available regarding this patient. Last updated 18.[facility] Social History Tobacco Use Types Packs/Day Years Used Date Smoking Tobacco: Never Assessed Sex and Gender Information Value Date Recorded Sex Assigned at Not on file Gender Identity Not on file Sexual Orientation Not on file Procedures * PATH CONSULT ON REFERRED CASE(Performed 08/02/2022) Performed for Illness, unspecified Results * PATH CONSULT ON REFERRED CASE (08/02/2022 7:28 AM BOOM TRUCK DRIVER) Final Diagnosis Urinary bladder, biopsy (OSC: [id number]; 08/02/2022): - Minimal chronic inflammation with rare eosinophils (1 eosinophil per high power field, 1 HPF = 0.238 mm2) 08/08/2022 10:54 AM [facility]3] PATHOLOGY LAB Microscopic Description and Comment Microscopic examination substantiates the final diagnosis. A single eosinophil is seen in the biopsy, which has an area of approximately 0.5 mm2. The urothelium is unremarkable. 08/08/2022 10:54 AM [facility] Clinical History ERYTHEMA, HUNNER'S ULCER, COUNT EOSINOPHILS 08/08/2022 10:54 AM [facility] Materials Received One prepared slide received from [facility] [id number]. All material will be returned. 08/08/2022 10:54 AM [facility]3] PATHOLOGY LAB Disclaimer The performance characteristics of all immunohistochemical and indirect immunofluorescence stains (if any) cited in this report were determined by the Histopathology Laboratory of [facility]. Some of these tests were developed by our own laboratory and have not been cleared or approved by the US Food and Drug Administration. The FDA does not require this test to go through premarket FDA review. These tests are used for clinical purposes. They should not be regarded as investigational or for research. This laboratory is certified under the Clinical Laboratory Improvement Amendments (CLIA) as qualified to perform high complexity clinical laboratory testing. This case has been personally reviewed and interpreted by the attending (teaching) pathologist. 08/08/2022 10:54 AM [facility]] PATHOLOGY LAB Case Report Surgical Pathology Report Case: [id number] Authorizing Provider: Ruby Reza MD Collected: 08/02/2022 07:28 AM Ordering Location: [facility] Pathology Lab Received: 08/07/2022 07:28 AM Pathologist: Carli Baker MD Specimen: Slide Consultation 08/08/2022 10:54 AM [facility]] PATHOLOGY LAB Embedded Images 08/08/2022 10:54 AM [facility]3] PATHOLOGY LAB Pathology/Cytolo gy SURGICAL PATHOLOGY CONSULTATION AND REPORT ON REFERRED SLIDES PREPARED ELSEWHERE / Unknown 08/02/2022 7:28 AM BOOM TRUCK DRIVER 08/07/2022 7:28 AM [facility] Ruby Reza MD LAB - PATHOLOGY/CYTO LOGY ORDERABLES Performing Organization Address City/State/[facility] Co de Phone Number [facility] [address] [place] [address], [facility] [phone]
--- OUTSIDE RECORDS SUMMARY | 2024-09-08 10:04 | XMS_ITS | Encounter Summary ---
Author Organization [facility] Address [address] [place] [address] Care Team Providers Care Slat Basket Maker Helper Machine Name Role Phone Unavailable Primary Care Provider Unavailabl e Encounter Details Date Type Department Care Team (Late st Contact Info) Description 08/07/2022 Lab Requisition [facility] [address] [place] [address] Ruby Reza MD [address] [place], [place] [id number] Illness, unspecified Social History Tobacco Use Types Packs/Day Years Used Date Smoking Tobacco: Never Assessed Sex and Gender Information Value Date Recorded Sex Assigned at Not on file Gender Identity Not on file Sexual Orientation Not on file documented as of this encounter Plan of Treatment Not on file documented as of this encounter Procedures Procedure Name Priority Date/Time Associated Diagnosis Comments PATH CONSULT ON REFERRED CASE Routine 08/02/2022 7:28 AM FAST FOOD SUPERVISOR Illness, unspecified documented in this encounter Results * PATH CONSULT ON REFERRED CASE (08/02/2022 7:28 AM FAST FOOD SUPERVISOR) Final Diagnosis Urinary bladder, biopsy (OSC: [id number]; 08/02/2022): - Minimal chronic inflammation with rare eosinophils (1 eosinophil per high power field, 1 HPF = 0.238 mm2) 08/08/2022 10:54 AM [facility] Microscopic Description and Comment Microscopic examination substantiates the final diagnosis. A single eosinophil is seen in the biopsy, which has an area of approximately 0.5 mm2. The urothelium is unremarkable. 08/08/2022 10:54 AM FAST FOOD SUPERVISOR [facility] Clinical History ERYTHEMA, HUNNER'S ULCER, COUNT EOSINOPHILS 08/08/2022 10:54 AM [facility] Materials Received One prepared slide received from [facility] [id number]. All material will be returned. 08/08/2022 10:54 AM [facility] Disclaimer The performance characteristics of all immunohistochemical and indirect immunofluorescence stains (if any) cited in this report were determined by the Histopathology Laboratory of [facility]. Some of these tests were developed by [...] the attending (teaching) pathologist. 08/08/2022 10:54 AM [facility] Case Report Surgical Pathology Report Case: [id number] Authorizing Provider: Ruby Reza MD Collected: 08/02/2022 07:28 AM Ordering Location: [facility] Path[facility] Lab Received: 08/07/2022 07:28 AM Pathologist: Carli Baker MD Specimen: Slide Consultation 08/08/2022 10:54 AM [facility] Embedded Images 08/08/2022 10:54 AM [facility] Pathology/Cytolo gy SURGICAL PATHOLOGY CONSULTATION AND REPORT ON REFERRED SLIDES PREPARED ELSEWHERE / Unknown 08/02/2022 7:28 AM FAST FOOD SUPERVISOR 08/07/2022 7:28 AM [facility] Ruby Reza MD LAB - PATHOLOGY/CYTO LOGY ORDERABLES Performing Organization Address City/State/[facility] Co de Phone Number [facility]Y LAB [address] [phone] documented in this encounter Visit Diagnoses Diagnosis Illness, unspecified documented in this encounter
--- OUTSIDE RECORDS SUMMARY | 2024-09-08 10:04 | XMS_ITS | Clinical Summary ---
Author Organization [facility] Address [address] [facility] [place] [place] [address] Care Team Providers Care Agricultural Services Director Name Role Phone Unavailable Primary Care Provider Unavailabl e Source Comments [facility],non-owned Affiliates and Associated Physician Practices is amultiple site organization consisting of ambulatory clinics and hospital sitesin [place], [place], [place] and [place]. This disclosure is being madepursuant to the Care Everywhere program and may not contain all information available regarding this patient. Last updated 18.[facility] [employer] Social History Tobacco Use Types Packs/Day Years Used Date Smoking Tobacco: Never Assessed Sex and Gender Information Value Date Recorded Sex Assigned at Not on file Gender Identity Not on file Sexual Orientation Not on file Plan of Treatment Health Maintenance Due Date Last Done Comments BONE DENSITY TESTING 1955 COLOGUARD (AGES 45-75) - COL ON CA SCREENING 1955 COLON MONITORING 1955 COLONOSCOPY - COLON CA SCREENING 1955 CT COLONOGRAPHY - COLON CA SCREENING 1955 Colorectal Cancer Screening 1955 FIT - COLON CA SCREENING 1955 FLEX SIG - COLON CA SCREENING 1955 LIPID TESTING 1955 MAMMOGRAM 1955 HEPATITIS C SCREENING 03/21/1972 DTAP/TDAP/TD VACCINES (1 - Tdap) 1973 PNEUMOCOCCAL VACCINE 50+ (1 of 1 - PCV) 2004 ZOSTER VACCINE (1 of 2) 2004 COVID-19 VACCINE ( - 2023-2 5 season) 2024 INFLUENZA VACCINE (#1) 2024 DEPRESSION SCREENING 07/22/2024 Respiratory Syncytial Virus (RSV) Vaccine Pt: or over 60 yrs (1 - 1-dose 75+ series) 2029 HEPATITIS B VACCINE Aged Out No longe r eligible based on patient's age to complete this topic HIB VACCINE Aged Out No longer eligi ble based on patient's age to complete this topic HPV VACCINE Aged Out No longer eligi ble based on patient's age to complete this topic MENINGOCOCCAL (Group B) VACCINE Aged Out No longer eligible based on patient's age to complete this topic MENINGOCOCCAL VACCINE Aged Out No simone alcides eligible based on patient's age to complete this topic
== END 2024-09-08 09:49 | disposition home or self-care (01) ==
PROVIDERS: PCP Family Medicine; Visit Provider Family Medicine
DX: M17.11 Unilateral primary osteoarthritis, right knee (principal)
CPT/HCPCS: 73564

== ENCOUNTER 2024-10-01 10:14 | Outpatient (CLI) | payer MEDICARE, SELFPAY ==
--- NOTE | ~2024-10-01 | US_ITS ---
EXAMINATION: US venous doppler LE RT DATE: 10/01/2024 11:12 INDICATION: Right lower limb pain. TECHNIQUE: Grayscale ultrasound images without and with compression and Doppler ultrasound images of the right lower extremity veins were obtained. COMPARISON: None. FINDINGS: The visualized portions of right common femoral vein, profunda (deep) femoral vein, femoral vein, pop liteal vein, peroneal veins, posterior tibial veins, and greater saphenous vein outflow are patent. T here is a small Watkins's cyst. IMPRESSION: 1. No deep venous thrombosis. 2. Small Watkins's cyst. Reviewed, dictated and finalized at location B.
--- OUTSIDE RECORDS SUMMARY | 2024-10-01 11:49 | XMS_ITS | Encounter Summary ---
Author Organization [facility] Address [address] [place] [address] Care Team Providers Care Lime Burner Name Role Phone Unavailable Primary Care Provider Unavailabl e Encounter Details Date Type Department Care Team (Latest Contact Info) Description 06/22/2008 Outpatient Historical [facility] [place] [address] [facility] [place] [address] Postmenopausal Bleeding Social History Tobacco Use Types Packs/Day Years Used Date Smoking Tobacco: Never Assessed Comments Unknown Sex and Gender Information Value Date Recorded Sex Assigned at Not on file Legal Sex Female 2:55 AM SPECIAL EFFECTS DESIGNER Gender Identity Not on file Sexual Orientation Not on file documented as of this encounter Plan of Treatment Not on file documented as of this encounter Procedures Procedure Name Priority Date/Time Associated Diagnosis Comments HEMOGLOBIN AND HEMATOCRIT Routine 07/13/2008 5:20 AM SPECIAL EFFECTS DESIGNER PATHOLOGY Routine 07/12/2008 11:32 AM SPECIAL EFFECTS DESIGNER HEMOGLOBIN AND HEMATOCRIT Routine 07/01/2008 2:20 PM SPECIAL EFFECTS DESIGNER BASIC METABOLIC PANEL Routine 07/01/2008 2:20 PM SPECIAL EFFECTS DESIGNER TYPE AND SCREEN Routine 07/01/2008 1:55 PM SPECIAL EFFECTS DESIGNER documented in this encounter Results * (ABNORMAL) HEMOGLOBIN AND HEMATOCRIT (07/13/2008 5:20 AM SPECIAL EFFECTS DESIGNER) HEMOGLOBIN 11.6(L) 11.8 - 14.8 g/dL [facility] HEMATOCRIT 34.5(L) 35.5 - 44.0 % [facility] Blood specimen (specimen) 07/13/2008 5:20 AM SPECIAL EFFECTS DESIGNER 07/13/2008 5:41 AM SPECIAL EFFECTS DESIGNER us Bhavani Singleton MD HEMATOLOGY ORDERABLES Final Re sult INTERFACE SYSTEM Refer to clinic/hospital department [facility] CLIA# [id number] [address] [place] [address] * PATHOLOGY (07/12/2008 11:32 AM SPECIAL EFFECTS DESIGNER) FINAL REPORT [facility] [place] [place] [address] [place], [place] [address] Patient: MIMI BOX : 1955 Procedure Date: 07/12/2008 Accession Date: 07/12/2008 Case No: [id number] Ordering Dr: BHAVANI SINGLETON Case types AW, BW, FW, NW and SH are performed by [facility] [place] [place], [place] SURGICAL PATHOLOGY & NON-GYNECOLOGIC CYTOPATHOLOGY REPORT [...] to reveal unremarkable fibroadipose tissue cut surface. Sheep Sticker sections are submitted in cassettes a follows: A1 and A2, lower uterine segment sections; A3-A4- endomyometrium with serosa; A5-ovary and fallopian tube; A6-A7-loose skin. [facility] 07.12.2008 06:27 pm Microscopic: The slides are labeled [id number] and Mimi Box. The uterus has been [...] pm INTERFACE SYSTEM 07/12/2008 11:3 2 AM SPECIAL EFFECTS DESIGNER us Bhavani Singleton MD PATHOLOGY/CYTOLOGY ORDERABLES Final Result INTERFACE SYSTEM Refer to clinic/hospital department * (ABNORMAL) BASIC METABOLIC PANEL (07/01/2008 2:20 PM SPECIAL EFFECTS DESIGNER) CALCIUM 9.8 8.6 - 10.2 mg/dL [facility] CO2 25 22 - 30 mmol/L [facility] CREATININE 0.81 0.51 - 0.95 mg/dL [facility] POTASSIUM 4.4 3.5 - 4.9 mmol/L [facility] BUN 22(H) 6 - 20 mg/dL [facility] CHLORIDE 104 96 - 108 mmol/L [facility] GLUCOSE 92 65 - 99 mg/dL [facility] SODIUM 140 135 - 145 mmol/L [facility] GFR, >60 >=60 mL/min/1.7 sq meter [facility] GFR >60 >=60 mL/min/1.7 sq meter [facility] Comment: Modification of Diet in Renal Disease (MDRD) study formula. Estimated GFR rate interpretative information for both Americans and non- Americans is available on the [facility] Intranet at: [email or web address] Select: Lab Policies and Procedures Select: Reference Ranges - GFR Blood specimen (specimen) 07/01/2008 2:20 PM SPECIAL EFFECTS DESIGNER 07/01/2008 4:18 PM SPECIAL EFFECTS DESIGNER Result [facility] Bhavani Singleton MD CHEMISTRY ORDERABLES Edited INTERFACE SYSTEM Refer to clinic/hospital department [facility] CLIA# [id number] [address] [facility] [place] [address] * HEMOGLOBIN AND HEMATOCRIT (07/01/2008 2:20 PM SPECIAL EFFECTS DESIGNER) HEMOGLOBIN 13.8 11.8 - 14.8 g/dL [facility] HEMATOCRIT 41.3 35.5 - 44.0 % [facility] Blood specimen (specimen) 07/01/2008 2:20 PM SPECIAL EFFECTS DESIGNER 07/01/2008 4:18 PM SPECIAL EFFECTS DESIGNER Bhavani Singleton MD HEMATOLOGY ORDERABLES Final Re sult Performing Organization Address City/[facility] de Phone Number INTERFACE SYSTEM Refer to clinic/hospital department [facility] CLIA# [id number] [address] [place] [address] * TYPE AND SCREEN (07/01/2008 1:55 PM SPECIAL EFFECTS DESIGNER) HISTORY CHECK No Historical ABO/Rh [facility] SPECIMEN LIFE 3 days from OR date [facility] ABO/RH TYPE A Negative [facility] ANTIBODY SCREEN Negative [facility] Blood specimen (specimen) 07/01/2008 1:55 PM SPECIAL EFFECTS DESIGNER us Bhavani Singleton MD BLOOD BANK ORDERABLES Edited Performing Organization Address [facility] Co de Phone Number INTERFACE SYSTEM Refer to clinic/hospital department [facility] CLIA# [id number] [address] [place] [address] documented in this encounter Visit Diagnoses Diagnosis Postmenopausal bleeding documented in this encounter
--- OUTSIDE RECORDS SUMMARY | 2024-10-01 11:50 | XMS_ITS | Clinical Summary ---
Author Organization [facility] Address [address] [place] [address] Care Team Providers Care Humanities Professor Name Role Phone Unavailable Primary Care Provider Unavailabl e Social History Tobacco Use Types Packs/Day Years Used Date Smoking Tobacco: Never Assessed Comments Unknown Sex and Gender Information Value Date Recorded Sex Assigned at Not on file Legal Sex Female 2:55 AM KEEL PRESS OPERATOR Gender Identity Not on file Sexual Orientation Not on file Plan of Treatment Health Maintenance Due Date Last Done Comments DTAP/TDAP/TD VACCINES (1 - Tdap) 1973 BREAST CANCER SCREENING 1994 COLORECTAL SCREENING 1999 Colorectal Cancer Screening 1999 FIT-DNA Q 3 years 1999 FIT/FOBT Q 1 year 1999 Flex Sig/CT Colonography Q 5 years 1999 PNEUMOCOCCAL VACCINE 50+ YEARS (1 of 1 - PCV) 03/26/20 04 ZOSTER VACCINE (1 of 2) 2004 OSTEOPOROSIS SCREENING 2019 INFLUENZA VACCINE (#1) 2024 RSV VACCINE (60+ or ) (1 - 1-dose 75+ series) 2029 Insurance [facility] [id number]
--- OUTSIDE RECORDS SUMMARY | 2024-10-01 11:50 | XMS_ITS | Patient Health Record ---
Author Organization [facility] Address [address] [place] [address] Care Team Providers Care Sales Development Associate Name Role Phone CALI AIKEN Primary Care Provider Unavailab wiliam CarranzaCathi josepho Unavailable [phone] Allergies Allergen (clinical drug ingredient) Drug/Non Drug Allergy documented on EMR Reaction Allergy Type Onset Date Status EPINEPHrine HEART RACES Drug Allergy Act pirscila Reason For Referral No Information Medications Medication SIG (Take, Route, Frequency, Duration) Notes Start Date End Date Status LOW DOSE ASA *Please review f or potential replacement for e-prescription and drug interaction check* Active Cephalexin 500 MG 1 tab(s) orally 2 times a day for 10 day(s) Not-Taking Vitamin D3 *Please review a nd pick correct strength-formulati on from Medispan options. If intended option is not shown, discontinue and re-order from Quick Search* Active Lysine *Please review a nd pick correct strength-formulati on from Medispan options. If intended option is not shown, discontinue and re-order from Quick Search* Active Simvastatin *Please review a nd pick correct strength-formulati on from Medispan options. If intended option is not shown, discontinue and re-order from Quick Search* Active Omeprazole *Please review a nd pick correct strength-formulati on from Medispan options. If intended option is not shown, discontinue and re-order from Quick Search* Active Social History Tobacco Use: Social History Observation Description Date Details (start date - stop date) Never Smoker NA - NA Smoking: Question Answer Notes Are you a: nonsmoker Problems Problem Type SNOMED Code ICD Code Onset Dates Problem Status W/U Status Risk Notes Problem [id number] Basal cell carcinoma of skin of scalp and neck (C44.41) Active confirmed Plan Of Treatment No Information Insurance Providers Payer Name Payer Address Payer Phone Subscriber Number Group Number Insured Name Patient Relationship to Insured Coverage Start Date Coverage End Date [employer] [address] [address] [place] [address] [id number] LORI SHELL Self - patient is the insured Medical (General) History Medical History History ICD Code Arthritis/joint pain: No * Artificial joint: No Depression: No * Multiple Sclerosis: No * Thyroid disease: No * Kidney disease: No * Chron's/ Colitis: No * Liver disease: No * Gastric ulcers: No * Pacemaker: No * Defibrillator: No * Heart valve surgery: No * High blood pressure: No *Bleeding disorder: No *Hepatitis: No *AIDS/HIV: No *Herpes/cold sores: No * Tuberculosis: No *SKIN CANCER: Yes *Keloid: No *Medication prior to dental cleaning/pro cedures: No Surgical History Surgery Date(Month/Year) Tonsillectomy 1956 MOHS 1998 L foot surgery 2000 R oopharectomy 2001 Total hysterectomy 2008
--- OUTSIDE RECORDS SUMMARY | 2024-10-01 11:50 | XMS_ITS | Patient Health Summary ---
Author Organization [facility] Address [address] [facility] [address] Care Team Providers Care Finishing Room Supervisor Name Role Phone Unavailable Primary Care Provider Unavailabl e Note from [facility],non-owned Affiliates and Associated Physician Practices is amultiple site organization consisting of ambulatory clinics and hospital sitesin [place], [place], [place] and [place]. This disclosure is being madepursuant to the Care Everywhere program and may not contain all information available regarding this patient. Last updated 18.[facility] Social History Tobacco Use Types Packs/Day Years Used Date Smoking Tobacco: Never Assessed Sex and Gender Information Value Date Recorded Sex Assigned at Not on file Gender Identity Not on file Sexual Orientation Not on file Procedures * PATH CONSULT ON REFERRED CASE(Performed 08/02/2022) Performed for Illness, unspecified Results * PATH CONSULT ON REFERRED CASE (08/02/2022 7:28 AM ACCOUNT DIRECTOR) Final Diagnosis Urinary bladder, biopsy (OSC: [id number]; 08/02/2022): - Minimal chronic inflammation with rare eosinophils (1 eosinophil per high power field, 1 HPF = 0.238 mm2) 08/08/2022 10:54 AM [facility] Microscopic Description and Comment Microscopic examination substantiates the final diagnosis. A single eosinophil is seen in the biopsy, which has an area of approximately 0.5 mm2. The urothelium is unremarkable. 08/08/2022 10:54 AM [facility] Clinical History ERYTHEMA, HUNNER'S ULCER, COUNT EOSINOPHILS 08/08/2022 10:54 AM [facility] Materials Received One prepared slide received from [facility] [id number]. All material will be returned. 08/08/2022 10:54 AM [facility] Disclaimer The performance characteristics of all immunohistochemical and indirect immunofluorescence stains (if any) cited in this report were determined by the Histopathology Laboratory of [facility]. Some of these tests were developed [...] the attending (teaching) pathologist. 08/08/2022 10:54 AM [facility] Case Report Surgical Pathology Report Case: [id number] Authorizing Provider: Ruby Reza MD Collected: 08/02/2022 07:28 AM Ordering Location: [facility] Received: 08/07/2022 07:28 AM Pathologist: Carli Baker MD Specimen: Slide Consultation 08/08/2022 10:54 AM [facility] Embedded Images 08/08/2022 10:54 AM [facility] Pathology/Cytolo gy SURGICAL PATHOLOGY CONSULTATION AND REPORT ON REFERRED SLIDES PREPARED ELSEWHERE / Unknown 08/02/2022 7:28 AM ACCOUNT DIRECTOR 08/07/2022 7:28 AM [facility] Ruby Reza MD LAB - PATHOLOGY/CYTO LOGY ORDERABLES Performing Organization Address City/State/[facility] Co de Phone Number [facility] [address] [place] [address], [facility] [phone]
--- OUTSIDE RECORDS SUMMARY | 2024-10-01 11:50 | XMS_ITS | Referral Summary ---
Author Organization [facility] Address [address] [facility] [address] Care Team Providers Care Change Management Consultant Name Role Phone Unavailable Primary Care Provider Unavailabl e Source Comments [facility],non-owned Affiliates and Associated Physician Practices is amultiple site organization consisting of ambulatory clinics and hospital sitesin [place], [place], [place] and [place]. This disclosure is being madepursuant to the Care Everywhere program and may not contain all information available regarding this patient. Last updated 18.[facility] Social History Tobacco Use Types Packs/Day Years Used Date Smoking Tobacco: Never Assessed Sex and Gender Information Value Date Recorded Sex Assigned at Not on file Gender Identity Not on file Sexual Orientation Not on file Plan of Treatment Not on file
--- OUTSIDE RECORDS SUMMARY | 2024-10-01 11:50 | XMS_ITS | Clinical Summary ---
Author Organization [facility] Address [address] [place] [address] Care Team Providers Care Transcribing Machine Mechanic Name Role Phone Unavailable Primary Care Provider Unavailabl e Source Comments [facility],non-owned Affiliates and Associated Physician Practices is amultiple site organization consisting of ambulatory clinics and hospital sitesin [place], [place], [place] and [place]. This disclosure is being madepursuant to the Care Everywhere program and may not contain all information available regarding this patient. Last updated 18.[facility] [employer] Social History Tobacco Use Types Packs/Day Years [...] to complete this topic MENINGOCOCCAL (Group B) VACC INE SHARED DECISION-MAKING Aged Out No longer eligibl e based on patient's age to complete this topic MENINGOCOCCAL GROUPS A/C/Y/W VACCINE Aged Out No longer eligible b ased on patient's age to complete this topic
--- OUTSIDE RECORDS SUMMARY | 2024-10-01 11:50 | XMS_ITS | Encounter Summary ---
Author Organization [facility] Address [address] [facility] [address] [place] [address] Care Team Providers Care Range Mechanic Name Role Phone Unavailable Primary Care Provider Unavailabl e Encounter Details Date Type Department Care Team (Late st Contact Info) Description 08/07/2022 Lab Requisition [facility] [address] [place] [address] Ruby Reza MD [address] [place], [place] [id number] Illness, unspecified Social History Tobacco Use Types [...] ON REFERRED CASE Routine 08/02/2022 7:28 AM LIQUID SUGAR MELTER Illness, unspecified documented in this encounter Results * PATH CONSULT ON REFERRED CASE (08/02/2022 7:28 AM LIQUID SUGAR MELTER) Final Diagnosis Urinary bladder, biopsy (OSC: [id number]; 08/02/2022): - Minimal chronic inflammation with rare eosinophils (1 eosinophil per high power field, 1 HPF = 0.238 mm2) 08/08/2022 10:54 AM [facility] Microscopic Description and Comment Microscopic examination substantiates the final diagnosis. A single eosinophil is seen in the biopsy, which has an area of approximately 0.5 mm2. The urothelium is unremarkable. 08/08/2022 10:54 AM [facility]AR [facility] Clinical History ERYTHEMA, HUNNER'S ULCER, COUNT EOSINOPHILS 08/08/2022 10:54 AM [facility] Materials Received One prepared slide received from [facility] [id number]. All material will be returned. 08/08/2022 10:54 AM [facility] Disclaimer The performance characteristics of all immunohistochemical and indirect immunofluorescence stains (if any) cited in this report were determined by the Histopathology Laboratory of [facility]. Some of these tests were developed [...] the attending (teaching) pathologist. 08/08/2022 10:54 AM [facility] Case Report Surgical Pathology Report Case: [id number] Authorizing Provider: Ruby Reza MD Collected: 08/02/2022 07:28 AM Ordering Location: [facility] Lab Received: 08/07/2022 07:28 AM Pathologist: Carli Baker MD Specimen: Slide Consultation 08/08/2022 10:54 AM [facility] LAB Embedded Images 08/08/2022 10:54 AM [facility] Pathology/Cytolo gy SURGICAL PATHOLOGY CONSULTATION AND REPORT ON REFERRED SLIDES PREPARED ELSEWHERE / Unknown 08/02/2022 7:28 AM LIQUID SUGAR MELTER 08/07/2022 7:28 AM [facility] Ruby Reza MD LAB - PATHOLOGY/CYTO LOGY ORDERABLES Performing Organization Address City/State/[facility] Co de Phone Number [facility] [address] [phone] documented in this encounter Visit Diagnoses Diagnosis Illness, unspecified documented in this encounter
--- OUTSIDE RECORDS SUMMARY | 2024-10-01 11:50 | XMS_ITS | Data Portability ---
Author Organization [facility] ermatology, Main Office Address [facility] [address] Care Team Providers Care Telegraph Mechanic Name Role Phone DARIUSZ ROBB Primary Care Provider [facility] Clearing Hand Assessment No assessment recorded. Plan of Treatment Reminders Order Date Submit Date Provider Last Modified By Organization Details Last Modified Time Details Appointments None recor ded. Lab biops y, skin - 1. shave bx, left shoul marcy r/o BCC2. shave bx,le ft chest r/o BCC 3. shave bx, right lower leg r/o BCC 2023 024 [facility], [address] [place] [address], [id number], 4 17:21:10 biops y, skin - 1. shave bx, r/o SCC, Right Lower Lip 2022 023 [facility], [address] [place] [address], [id number], 3 15:35:51 biops y, skin - EXCIS ION, CHECK SIRENA NS, TAGGE D 12:00 , R/O BCC, LEFT POSTA URICU LAR 2022 023 [facility], [address] [place] [address], [id number], 3 17:09:24 Referral None recor ded. Procedures None recor ded. Surgeries None recor ded. Imaging None recor ded. Medication Orders fluor ourac il 5 % topic al cream 2022 023 [facility], [address], [place], [address], 13:51:13 Patient TargetsNo targets recorded. Patient Instructions Encounter Date Encounter Id Patient Instructions Last Modified By Organization Details Last Modified Time 09/13/2022 wound care instructions stadicherla Not available 09/13/2022 17:09:24 09/15/2022 biopsy wound care education stadicheral Not available 09/15/2022 15:35:51 09/26/2022 efudex instructions stadicheral Not available 09/26/2022 13:38:58 11/08/2022 pt will no longer be living in [facility], she has decided to travel in the country. Informed that she will schedule an appointment for f/u when she is in the area. Not available 11/08/2022 10:36:52 09/28/2023 [id number] cryosurgery instructions stadicherla Not available 09/28/2023 17:21:10 sun protection stadicherla Not available 09/28/2023 17:21:10 biopsy wound care education stadicheral Not available 09/28/2023 17:21:10 Reason for Referral None Reported. Results Created Date Observation Date Name Description Value Unit Range Abnormal Flag Note LastModifiedBy Organization Detail LastModifiedTime Result Notes None recorded. Problems Name Problem SNOMED Code Status Onset Date Resolution Date Notes Provider Name and Address Organization Details Recorded Time Basal cell carcinoma of truncal skin 756635857 Active 2017 Linnea Burkett MD [address], [place], [address] , [facility] 8 14:06:48 Light and ultraviolet-i nduced dermatosis Active 2022 Linnea Burkett MD [address], [place], [address] , [facility] 3 14:43:20 Senile hyperkeratosi s 050620038 Active 2022 Linnea Burkett MD [address] [place] [address] [address], [place], [address] , [facility] 3 14:43:20 Neoplasm of uncertain behavior of skin 05306718 Active 2022 Linnea Burkett MD [address] [place] [address] [address], [place], [address] , [facility] 3 14:43:20 Actinic keratosis 641968262 Active 2022 Linnea Burkett MD [address] [place] [address] [address], [place], [address] , [facility] 3 14:43:20 Inflamed seborrheic keratosis 542222333 Active 2022 Linnea Burkett MD [address] [place] [address] [address], [place], [address] , [facility] 3 14:43:20 Melanocytic nevus 298148989 Active 2023 Linnea Burektt MD [address] [place] [address] [address], [place], [address] , [facility] 4 17:00:19 Multiple angiomatous nevi of skin 026741902 Active 2023 Linnea Burkett MD [address] [place] [address] [address], [place], [address] , [facility] 4 17:00:19 Multiple skin tags 714686986 Active 2023 MD Sujata Flores [facility] [address], [place], [address] , [facility] 4 17:00:19 History of malignant neoplasm of skin 245780949 Active 2017 MD Sujata Flores [facility] [address], [place], [address] , [facility] 19:24:51 Problem Notes None recorded. Procedures Surgical History Date Name Laterality Status Provider Name and Address Organization Details Recorded Time 2023 Cryo Surgery AK completed Sarah [facility] 09/28/2023 13:08:02 2023 ISK CRYO completed BYRON VIEIRA APRN [address], [place], [address], [facility] 09/28/2023 13:28:24 2023 Shave Biopsy, Multiple completed BYRON VIEIRA APRN [address], [place], [address], [facility] 09/28/2023 13:29:17 2022 Suture removal completed [facility] 09/26/2022 13:35:26 2022 Shave Biopsy completed Linnea Burkett MD [address], [place], [address], [facility] 09/15/2022 14:52:05 2022 [place] [address] [place] [address] [address], [place], [address], [facility] 09/13/2022 12:19:57 2022 Cryo [place] [address] [place] [address] [address], [place], [address], [facility] 08/15/2022 14:32:53 2022 ISK CRYO completed Linnea Burkett MD [address], [place], [address], [facility] 08/15/2022 14:33:37 2022 Shave [place] [address] [place] [address] [address], [place], [address], [facility] 08/15/2022 14:33:27 2021 Cryo Surgery AK completed [facility] 08/10/2021 11:23:18 2021 ISK CRYO completed Linnea Burkett MD [address], [place], [address], [facility] 08/10/2021 11:26:00 2020 [place]ision [place] [address] [place] [address] [address], [place], [address], [facility] 09/01/2020 16:46:58 2020 Shave [place]opsy [place] [address] [place] [address] [address], [place], [address], [facility] 07/27/2020 10:52:10 2019 Shave [place] [address] [place] [address] [address], [place], [address], [facility] 07/30/2019 11:46:28 2017 Electrodessication and Curettage completed MD Katelyn Flores6 [facility] [address], [place], [address], [facility] 08/28/2017 14:06:18 2017 Shave Biopsy, Multiple completed Linnea Burkett MD [address], [place], [address], [facility] 08/15/2017 19:22:59 tonsilectomy/adenoid s completed MD Sujata Flores [address], [place], [address], [facility] 08/14/2017 15:30:44 Skin Cancer Surgery completed Saeid Burkett MD [address] [facility] [address], [place], [address], [facility] 08/14/2017 15:30:49 Imaging Results None recorded. Procedure Notes None recorded. Medical Equipment None Reported. Allergies Allergen ID Allergen Name Allergen Category Reaction Reaction Severity Criticality Documentation Date Start Date Code Code System Note Provider Name and Address Organization Details Recorded Time 3912 epinephri ne medicatio n palpitati ons Not available Not available 07/27/2020 3992 RxNorm Linnea macdonald MD [address] [facility] [address], [place], [address], [facility] 10:58:08 Medications Name Sig Start Date Stop Date Status Note LastModified by Organization Details LastModified Time erythromyci n 50mg tab #229920 tablets TAKE 1 TABLET BY MOUTH EVERY EVENING AT BEDTIME 09/27 completed Not Available Not Available Not Available fluorocal cream APPLY A SMALL AMOUNT TO COVER THE LESION IN THE AFFECTED AREAS ON LOWER LIP ONCE DAILY FOR 3 TO 4 DAYS TOLERATED . 09/27 completed Not Available Not Available Not Available erythromyci n 50mg tablet #[id number] TAKE ONE TABLET BY MOUTH EVERY EVENING AT BEDTIME active Not Available Not Available No t Available atorvastati n 20 mg tablet Take 1 tablet every day by oral route. active Not Available Not Available No t Available atorvastati n 10 mg tablet TAKE 1 TABLET BY MOUTH EVERY DAY 07/27 completed Not Available Not Available Not Available valacyclovi r 1 gram tablet TAKE 2 TABLET BY MOUTH EVERY 12 HOURS AT FIRST SIGN OF COLD SORE FOR ONE DAY 08/15 completed Not Available Not Available Not Available metoprolol succinate ER 50 mg tablet,exte nded release 1 tablet every day by oral route. active Not Available Not Available No t Available fluorouraci l 5 % topical cream APPLY A SMALL AMOUNT TO COVER THE LESIONS IN THE AFFECTED AREA(S) ON LOWER LIP BY TOPICAL ROUTE ONCE DAILY FOR 3-4 DAYS TOLERATED 2022 active Not Available Not Available Not Avai lable metronidazo le 500 mg tablet TAKE 1 TABLET BY MOUTH TWICE A DAY UNTIL ALL TAKEN 08/15 completed Not Available Not Available Not Available sulfamethox azole 800 mg-trimetho prim 160 mg tablet TAKE 1 TABLET BY MOUTH TWICE A DAY 09/27 completed Not Available Not Available Not Available tramadol 50 mg tablet TAKE 1 TABLET BY MOUTH EVERY 6 HOURS NEEDED 08/15 completed Not Available Not Available Not Available nitrofurant oin macrocrysta l 100 mg capsule 09/27 completed Not Available Not Available Not Available hydrocortis one 2.5 % topical cream APPLY A THIN LAYER TO THE AFFECTED AREA(S) BEHINF EARS AND FOREHEAD HAIRLINE BY TOPICAL ROUTE 2 TIMES PER DAY FOR 2 WEEKS, THEN PRN FOR FLARES 08/15 completed Not Available Not Available Not Available metoprolol succinate ER 25 mg tablet,exte nded release 24 hr TAKE 1 TABLET BY MOUTH DAILY 09/27 completed Not Available Not Available Not Available estradiol 0.01% (0.1 mg/gram) vaginal cream 09/12 completed Not Available Not Available Not Available neomycin 500 mg tablet TAKE 1 TABLET BY MOUTH TWICE A DAY 08/15 completed Not Available Not Available Not Available ondansetron 4 mg disintegrat ing tablet DISSOLVE 1 TABLET BY MOUTH 30MIN PRIOR TO EACH DOSE, THEN EVER 4-6 HRS NEEDED FOR NAUSEA. 09/27 completed Not Available Not Available Not Available cefdinir 300 mg capsule TAKE 1 CAPSULE BY MOUTH TWICE A DAY active Not Available Not Available No t Available nitrofurant oin monohydrate /macrocryst als 100 mg capsule TAKE 1 CAPSULE BY MOUTH TWICE A DAY 09/27 completed Not Available Not Available Not Available folic acid 08/15 completed Not Available Not Available Not Available Macrodantin prn 08/15 completed Not Available Not Available Not Available simvastatin 07/27 completed Not Available Not Available Not Available Vitamin D 08/15 completed Not Available Not Available Not Available Nexium 08/15 completed Not Available Not Available Not Available Align (B.infantis ) active Not Available Not Available Not Available GaviLyte-G 236 gram-22.74 gram-6.74 gram-5.86 gram oral solution USE DIRECTED, AM/PM SLPIT DOSING: FIRST DOSE 6PM NIGHT BEFORE THEN 2ND 6 HRS PRIOR TO PROCEDURE . 09/27 completed Not Available Not Available Not Available Fluzone High-Dose Quad (PF) 240 mcg/0.7 mL IM syringe ADM 0.7ML IM UTD 07/27 completed Not Available Not Available Not Available Vitals Date Recorded Body height Provider Name an d Address Organization Details Last Updated DateTime 09/15/2022 165.1 cm Dara Collins [facility] 09/15/2022 14:11:16 Date Recorded Body height Provider Name an d Address Organization Details Last Updated DateTime 11/08/2022 165.1 cm Jasbir Sims [facility] 11/08/2022 10:25:12 Date Recorded Body height Provider Name an d Address Organization Details Last Updated DateTime 09/28/2023 165.1 cm [place] [facility] 09/28/2023 12:11:48 Social History Question Answer Notes LastModified by Organizat ion Details LastModified Time Tobacco Smoking Status Never Smoker Not Available [facility] 05/24/2020 03:18:55 What Is Your Level Of Alcohol Consumption? Occasional [id number] Information not available 05/24/2020 What Is Your Occupation? Retired [id number] Information not available 05/24/2020 What Was The Date Of Your Most Recent Tobacco Screening? 08/14/2017 [id number] Information not available 05/24/2020 How Much Tobacco Do You Smoke? No [id number] Information not available 05/24/2020 Sun Exposure Occasional Information not available 08/14/2017 Do You Use Sunscreen Routinely? Yes [id number] Information not available 05/24/2020 Tanning Bed Exposure No Information not available 08/14/2017 Sex: Unknown Functional Status None recorded. Mental Status None recorded. Family History Relationship Description Onset Age of this Age Resolved Age Notes LastModified by Organization Details LastModified Time Paternal Grandmother Family history of malignant neoplasm colon ca stadicherla Not available 08/14/2017 15:29:42 Maternal Uncle Family history of malignant neoplasm pancre atic ca stadicherla Not available 08/14/2017 15:30:15 Medical History Condition Response Inflammatory bowel disease N Hives N Migraines N Herpes N Artificial joint N Arrythmia N Thyroid Problems N Depression N Acne N Syphilis N Pacemaker N Internal Cancer N Anemia N Venereal Disease N Skin Diesease N Diabetes N Rheumatic Fever N Bleeding Disorder N Arthritis N Scarring N Shingles N Blood Clot N AIDS/HIV N Tuberculosis N Eczema N Stroke N Asthma N Lupus N COPD/Emphysema N Heart valve surgery N Skin Cancer Y Hepatitis N Mitral Valve Prolapse N Liver Disease N Gastric ulcers N Heart murmur N Hypertension N Chicken Pox N Kidney Disease N Gynecological History Statement/Question Response N N Y Obstetrics History GPAL:G 0 P 0 0 0 0 Past Encounters Encounter ID Performer Location Encounter Start Date Encounter Closed Date Diagnosis/Indication Diagnosis SNOMED-CT Code Diagnosis ICD10 Code Diagnosis Note [id number] Linnea Burkett MD Main Office [address] [place] [id number] 08/14/2017 15:04:42 08/14/2017 16:05:22 Neoplasm of uncertain behavior of skin 65751376 D48.5 x2 Senile hyperkeratosis 39 6067281 L82.1 Benign. No further treatment needed.cry o x1 on mid forehead History of malignant neoplasm of skin 185540113 Z85.828 No evidence or recurrence . Advised self skin checks QM and sun protective measures QD. Light and ultraviolet-induced dermatosis 789758473 L57.8 Chronic solar dermatitis : Rec daily sun protective measures and monthly skin checks [id number] Linnea Burkett MD Main Office [address] [place] [id number] 08/28/2017 13:45:21 08/28/2017 14:03:46 Basal cell carcinoma of truncal skin 003138855 C44.519 [id number] Linnea Burkett MD Main Office [address] [place] [id number] 07/30/2019 11:18:36 07/30/2019 12:25:13 Neoplasm of uncertain behavior of skin 42435837 D48.5 Melanocytic nevus 135188 001 D22.9 Nevi: banal appearing. Advised qmonthly skin check to note for any changes of existing lesions or for any new lesions. ABCDE's of melanoma d/w pt. Rec. daily photoprote ctive measures. Senile hyperkeratosis 39 1867300 L82.1 Benign. No further treatment needed. Light and ultraviolet-induced dermatosis 589331156 L57.8 Chronic solar dermatitis : Rec daily sun protective measures and monthly skin checks History of malignant neoplasm of skin 975760542 Z85.828 No evidence or recurrence . Advised self skin checks [place]. [id number] Linnea Burkett MD Main Office [address] [id number] 07/27/2020 10:21:24 07/27/2020 11:02:09 History of malignant neoplasm of skin 495942007 Z85.828 No evidence or recurrence . Advised self skin checks QM and sun protective measures QD. Melanocytic nevus 790283 001 D22.9 Nevi: banal appearing. Advised qmonthly skin check to note for any changes of existing lesions or for any new lesions. ABCDE's of melanoma d/w pt. Rec. daily photoprote ctive measures. Senile hyperkeratosis 39 3896169 L82.1 Benign. No further treatment needed. Light and ultraviolet-induced dermatosis 290547786 L57.8 Chronic solar dermatitis : Rec daily sun protective measures and monthly skin checks Multiple skin tags 65790 7009 L91.8 - benign and no txment needed unless inflamed. - pt was made aware that removal is considered cosmetic and that insurance does not cover their removal Senile angioma 2198281 I 78.1 Boucher Hemangioma : - benign. no txment needed. Removal considered cosmetic and not covered by insurance, unless inflamed or bleeding. Seborrheic dermatitis 50 997633 L21.9 - d/w pt that only flares can be treated but cannot attain complete cure. Rec to use meds as recommende d prn for flares. Neoplasm o f uncertain behavior of skin 09950093 D48.5 [id number] Linnea Burkett MD Main Office [address] [place] [id number] 09/01/2020 15:46:17 09/01/2020 16:52:34 Basal cell carcinoma of lower extremity 356539009 C44.712 [id number] Linnea Burkett MD Main Office [address] [place] [id number] 09/15/2020 13:25:24 09/15/2020 13:25:48 Postoperative care 179415688 Z48.89 [id number] Linnea Burkett MD Main Office [address] [place] [id number] 08/10/2021 10:52:57 08/10/2021 11:26:29 Actinic keratosis L57.0 - may or may not have a blister w/ treatment. - will appear as a dry spot that peels eventually leaving a pink spot that should clear eventually . Senile hyperkeratosis 39 8477194 L82.1 Benign. No further treatment needed. Light and ultraviolet-induced dermatosis 325825725 L57.8 Chronic solar dermatitis : Rec daily sun protective measures with broad spectrum sunscreen SPF 30 or above and monthly skin checks Inflamed s eborrheic keratosis 609721407 L82.0 - may or may not have a blister w/ treatment. - will appear as a dry spot that peels eventually leaving a pink spot that should clear eventually . History of malignant neoplasm of skin 636258275 Z85.828 No evidence or recurrence . Advised self skin checks QM and [place] QD. [id number] Linnea Burkett MD Main Office [address] [place] [id number] 08/15/2022 13:57:37 08/15/2022 14:43:57 History of malignant neoplasm of skin 007703990 Z85.828 No evidence or recurrence . Advised self skin checks QM and sun protective measures QD. Neoplasm o f uncertain behavior of skin 55269466 D48.5 Actinic keratosis L57.0 - May or may not have a blister w/ treatment. - Will appear as a dry spot that peels eventually leaving a pink spot that should clear eventually . Inflamed s eborrheic keratosis 482192859 L82.0 - may or may not have a blister w/ treatment. - will appear as a dry spot that peels eventually leaving a pink spot that should clear eventually . Senile hyperkeratosis 39 8352589 L82.1 Benign. No further treatment needed. Light and ultraviolet-induced dermatosis 122802752 L57.8 Chronic solar dermatitis : Rec daily sun protective measures with broad spectrum sunscreen SPF 30 or above and monthly skin checks Linnea Burkett MD Main Office [address] [place] [id number] 09/13/2022 11:23:50 09/13/2022 12:12:12 Basal cell carcinoma of neck 475387332 C44.41 [id number] Linnea Burkett MD Main Office [address] [place] [id number] 09/15/2022 14:07:51 09/15/2022 14:56:14 Neoplasm of uncertain behavior of skin 76734843 D48.5 Linnea Burkett MD Main Office [address] [place] [id number] 09/26/2022 13:16:55 09/26/2022 13:38:25 Actinic keratosis 064520097 L57.0 - expected reaction to efudex crm d/w pt.- rec. photoprote ction during tx to avoid sun bernal Linnea Burkett MD Main Office [address] [place] [id number] 11/08/2022 10:20:51 11/08/2022 10:35:07 Actinic keratosis 870589165 L57.0 -no scaling noted on the lips, rec to repeat tx in 6 months for prevention -pt aware of the expected reaction and to sun protect [id number] Linnea Burkett MD Main Office [address] [place] [id number] 09/28/2023 11:28:51 09/28/2023 13:26:33 Neoplasm of uncertain behavior of skin 34460291 D48.5 Actinic keratosis 007 L57.0 -no scaling noted on the lips, rec to repeat tx in 6 months for prevention -pt aware of the expected reaction and to sun protect Senile hyperkeratosis 39 1660441 L82.1 Benign. No further treatment needed. Inflamed s eborrheic keratosis 751679826 L82.0 - may or may not have a blister w/ treatment. - will appear as a dry spot that peels eventually leaving a pink spot that should clear eventually . Light and ultraviolet-induced dermatosis 103363530 L57.8 Chronic solar dermatitis : Rec daily sun protective measures with broad spectrum sunscreen SPF 30 or above and monthly skin checks Melanocytic nevus 428962 001 D22.5 Nevi: banal appearing. Advised qmonthly skin check to note for any changes of existing lesions or for any new lesions. ABCDE's of melanoma d/w pt. Rec. daily photoprote ctive measures. Multiple skin tags 49606 7009 L91.8 - benign and no txment needed unless inflamed. - pt was made aware that removal is considered cosmetic and that insurance does not cover their removal Multiple a ngiomatous nevi of skin 581649947 D18.01 discussed benign nature of the lesions and no further treatment is needed Health Concerns Section Related Observation LastModified by Organization Detai ls LastModified Time None Recorded Concern Status LastModified by Organization Details LastModified Time None Recorded Advance Directives Directive None Recorded Payers Encounter Date Sequence Insurance Name Policy Number Policy Balbunea Covered Member ID Balbuena Member ID Guarantor Name 09/13/2022 1 [employer] (MEDICARE REPLACEMENT/A DVANTAGE - PPO) Mimi Box [id number] Mimi Box 09/15/2022 1 [employer] (MEDICARE REPLACEMENT/A DVANTAGE - PPO) Mimi Champagne Isauro [id number] Mimi Isauro 09/26/2022 1 [employer] (MEDICARE REPLACEMENT/A DVANTAGE - PPO) Mimi Champagne Isauro [id number] Mimi Isauro 11/08/2022 1 [employer] (MEDICARE REPLACEMENT/A DVANTAGE - PPO) Mimi Champagne Isauro [id number] Mimi Box 09/28/2023 1 [employer] (MEDICARE REPLACEMENT/A DVANTAGE - PPO) Mimi Box [id number] Mimi Box Notes Date Note Type Note Provider Name and Address Organization Details Recorded Time 09/13/2022 text/html Est pt presents for exc of BCC on left postauricular Linnea Burkett MD [address] [facility] [address], [place], [address], [facility] 09/13/2022 12:22:40 09/15/2022 text/html Est pt presents w/ concern of lesions on lip, onset 9 months, reports it's on and off - red-pink colored blisters form that are painful. Would like reassurance MD Katelyn Flores6 [facility] [address], [place], [address], [facility] 09/15/2022 14:53:31 09/26/2022 text/html Est pt presents for f/u of bx proven AK on right lower lip.Also here for s/r - left post auricular MD Katelyn Flores[address] [place] [address] [address], [place], [address], [facility] 09/26/2022 13:39:23 11/08/2022 text/html -est pt here for AK f/u, given fluorouracil cream and was having blistering across lips before but now seems to be resolved, would like eval on progress. Reports of not feeling smooth like this after a long time Linnea Burkett MD [address] [facility] [address], [place], [address], [facility] 11/08/2022 10:43:11 09/28/2023 text/html Est pt presents with a skin check. Pt presents with little spots on forearms and a spot on chest her right episcopal. Pt has history of BCC. Linnea Burkett MD [address] [facility] [address], [place], [address], [facility] 09/28/2023 17:00:45 OBGyn Episode No OBEpisode recorded.
== END 2024-10-01 10:15 | disposition home or self-care (01) ==
PROVIDERS: PCP Family Medicine; Visit Provider Family Medicine
DX: M71.21 Synovial cyst of popliteal space [Baker], right knee (principal); M79.661 Pain in right lower leg
CPT/HCPCS: 93971

== ENCOUNTER 2025-06-16 16:13 | Outpatient (CLI) | payer MEDICARE, SELFPAY ==
--- NOTE | ~2025-06-16 | US_ITS ---
Clinical History: R42 - Dizziness and giddiness Examination: US carotid duplex BI Comparison: None Technique: Grayscale, color, duplex/spectral Doppler sonography carotid and vertebral arteries. Distal CCA and Peak ICA systolic velocities provided. Society of Radiologists in Ultrasound (SRU) consensus criteria utilized, indirectly assessing stenosis by velocities. Findings: Mild plaque. Right side: CCA - 83 cm/sec. ICA - 73 cm/sec. ICA/CCA - 0.9 Left Side: CCA - 71 cm/sec. ICA - 78 cm/sec. ICA/CCA - 1.1 Normal antegrade flow measured bilateral vertebral arteries. IMPRESSION: 1. No hemodynamically significant ICA stenosis (i.e., if any stenosis, less than 50%). 2. Normal bilateral antegrade vertebral artery flow. Stenosis measured by Society of Radiologists in Ultrasound (SRU) criteria. Reviewed, dictated and finalized at location R. T PREPARER IMPRESSION: 1. No hemodynamically significant ICA stenosis (i.e., if any stenosis, less th an 50%). 2. Normal bilateral antegrade vertebral artery flow. Stenosis measured by Society of Radiologists in Ultrasound (SRU) criteria.
--- OUTSIDE RECORDS SUMMARY | 2025-06-16 16:18 | XMS_ITS | Encounter Summary ---
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 Name Role Phone Unavailable Primary Care Provider Unavailabl e Encounter Details Date Type Department Care Team (Late st Contact Info) Description 08/07/2022 Lab Requisition [facility] [address] [place] [address] Ruby Reza MD [address] [place], [place] [id number] Illness, unspecified Social History Tobacco Use Types Packs/Day Years Used Date Smoking Tobacco: Never Assessed Comments Unknown Sex and Gender Information Value Date Recorded Sex Assigned at Not on file Legal Sex Female 11:29 AM TONGUER Gender Identity Not on file Sexual Orientation Not on file documented as of this encounter Plan of Treatment Not on file documented as of this encounter Procedures Procedure Name Priority Date/Time Associated Diagnosis Comments PATH CONSULT ON REFERRED CASE Routine 08/02/2022 7:28 AM TONGUER Illness, unspecified documented in this encounter Results * PATH CONSULT ON REFERRED CASE (08/02/2022 7:28 AM TONGUER) Final Diagnosis Urinary bladder, biopsy (OSC: [id number]; 08/02/2022): - Minimal chronic inflammation with rare eosinophils (1 eosinophil per high power field, 1 HPF = 0.238 mm2) 08/08/2022 10:[address] [facility] at [address] Microscopic Description and Comment Microscopic examination substantiates the final diagnosis. A single eosinophil is seen in the biopsy, which has an area of approximately 0.5 mm2. The urothelium is unremarkable. 08/08/2022 10:54 AM TONGUER [facility] Clinical History ERYTHEMA, HUNNER'S ULCER, COUNT EOSINOPHILS 08/08/2022 10:54 AM [facility] Materials Received One prepared slide received from [facility] [id number]. All material will be returned. 08/08/2022 10:54 AM [facility] Disclaimer The performance characteristics of all immunohistochemical and indirect immunofluorescence stains (if any) cited in this report were determined by the Histopathology [facility] of [facility]. Some of these tests were developed [...] attending (teaching) pathologist. 08/08/2022 10:54 AM [facility] Case Report Surgical Pathology Report Case: [id number] Authorizing Provider: Ruby Reza MD Collected: 08/02/2022 07:28 AM Ordering Location: [facility] Received: 08/07/2022 07:28 AM Pathologist: Carli Baker MD Specimen: Slide Consultation 08/08/2022 10:54 AM [facility] Embedded Images 08/08/2022 10:54 AM [facility] Pathology/Cytolo gy SURGICAL PATHOLOGY CONSULTATION AND REPORT ON REFERRED SLIDES PREPARED ELSEWHERE / Unknown 08/02/2022 7:28 AM TONGUER 08/07/2022 7:28 AM TONGUER us Ruby Reza MD LAB - PATHOLOGY/CYTOLOGY ORDERAB LES Final Result [facility] [address] [place] [address], [facility] [phone] documented in this encounter Visit Diagnoses Diagnosis Illness, unspecified documented in this encounter
--- OUTSIDE RECORDS SUMMARY | 2025-06-16 16:18 | XMS_ITS | Encounter Summary ---
Author Organization [facility] Address 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 [place] [address] Postmenopausal Bleeding Social History Tobacco Use Types Packs/Day Years Used Date Smoking Tobacco: Never Assessed Comments Unknown Sex and Gender Information Value Date Recorded Sex Assigned at Not on file Legal Sex Female 2:55 AM LAB ANALYST Gender Identity Not on file Sexual Orientation Not on file documented as of this encounter Plan of Treatment Not on file documented as of this encounter Procedures Procedure Name Priority Date/Time Associated Diagnosis Comments HEMOGLOBIN AND HEMATOCRIT Routine 07/13/2008 5:20 AM LAB ANALYST PATHOLOGY Routine 07/12/2008 11:32 AM LAB ANALYST HEMOGLOBIN AND HEMATOCRIT Routine 07/01/2008 2:20 PM LAB ANALYST BASIC METABOLIC PANEL Routine 07/01/2008 2:20 PM LAB ANALYST TYPE AND SCREEN Routine 07/01/2008 1:55 PM LAB ANALYST documented in this encounter Results * (ABNORMAL) HEMOGLOBIN AND HEMATOCRIT (07/13/2008 5:20 AM LAB ANALYST) HEMOGLOBIN 11.6(L) 11.8 - 14.8 g/dL [facility] HEMATOCRIT 34.5(L) 35.5 - 44.0 % [facility] Blood specimen (specimen) 07/13/2008 5:20 AM LAB ANALYST 07/13/2008 5:41 AM LAB ANALYST us Bhavani Singleton MD HEMATOLOGY ORDERABLES Final Re sult INTERFACE SYSTEM Refer to clinic/hospital department [facility] CLIA# [id number] [address] [place] [address] * PATHOLOGY (07/12/2008 11:32 AM LAB ANALYST) FINAL REPORT [facility] [address] [place], [place] [address] Patient: MIMI BOX : 1955 Procedure Date: 07/12/2008 Accession Date: 07/12/2008 Case No: [id number] Ordering Dr: BHAVANI SINGLETON Case types AW, BW, FW, NW and SH are [place] [facility] [place] SURGICAL PATHOLOGY & NON-GYNECOLOGIC CYTOPATHOLOGY REPORT [...] to reveal unremarkable fibroadipose tissue cut surface. [employer] Records Clerk sections are submitted in cassettes a follows: A1 and A2, lower uterine segment sections; A3-A4- endomyometrium with serosa; A5-ovary and fallopian tube; A6-A7-loose skin. [facility] 07.12.2008 06:27 pm Microscopic: The slides are labeled [id number] and Mimi Box. The uterus has been [...] pm INTERFACE SYSTEM 07/12/2008 11:3 2 AM LAB ANALYST us Bhavani Singleton MD PATHOLOGY/CYTOLOGY ORDERABLES Final Result INTERFACE SYSTEM Refer to clinic/hospital department * (ABNORMAL) BASIC METABOLIC PANEL (07/01/2008 2:20 PM LAB ANALYST) CALCIUM 9.8 8.6 - 10.2 mg/dL [facility] CO2 25 22 - 30 mmol/L [facility] CREATININE 0.81 0.51 - 0.95 mg/dL [facility] POTASSIUM 4.4 3.5 - 4.9 mmol/L [facility] BUN 22(H) 6 - 20 mg/dL [facility] CHLORIDE 104 96 - 108 mmol/L [facility] GLUCOSE 92 65 - 99 mg/dL [facility] SODIUM 140 135 - 145 mmol/L [facility] GFR, >60 >=60 mL/min/1.7 sq meter [facility] GFR >60 >=60 mL/min/1.7 sq meter [facility] Comment: Modification of Diet in Renal Disease (MDRD) study formula. Estimated GFR rate interpretative information for both Americans and non- Americans is available on the [facility] Intranet at: [email or web address] Select: Lab Policies and Procedures Select: Reference Ranges - GFR Blood specimen (specimen) 07/01/2008 2:20 PM LAB ANALYST 07/01/2008 4:18 PM LAB ANALYST Result [facility] Bhavani Singleton MD CHEMISTRY ORDERABLES Edited INTERFACE SYSTEM Refer to clinic/hospital department [facility] CLIA# [id number] [address] [facility] [facility] [place] [address] * HEMOGLOBIN AND HEMATOCRIT (07/01/2008 2:20 PM LAB ANALYST) HEMOGLOBIN 13.8 11.8 - 14.8 g/dL [facility] HEMATOCRIT 41.3 35.5 - 44.0 % [facility] Blood specimen (specimen) 07/01/2008 2:20 PM LAB ANALYST 07/01/2008 4:18 PM LAB ANALYST Bhavani Singleton MD HEMATOLOGY ORDERABLES Final Re sult Performing Organization Address City/[facility] de Phone Number INTERFACE SYSTEM Refer to clinic/hospital department [facility] CLIA# [id number] [address] [place] [address] * TYPE AND SCREEN (07/01/2008 1:55 PM LAB ANALYST) HISTORY CHECK No Historical ABO/Rh [facility] SPECIMEN LIFE 3 days from OR date [facility] ABO/RH TYPE A Negative [facility] ANTIBODY SCREEN Negative [facility] Blood specimen (specimen) 07/01/2008 1:55 PM LAB ANALYST us Bhavani Singleton MD BLOOD BANK ORDERABLES Edited Performing Organization Address [facility] Co de Phone Number INTERFACE SYSTEM Refer to clinic/hospital department [facility] CLIA# [id number] [address] [place] [address] documented in this encounter Visit Diagnoses Diagnosis Postmenopausal bleeding documented in this encounter
--- OUTSIDE RECORDS SUMMARY | 2025-06-16 16:18 | XMS_ITS | Data Portability ---
Author Organization [facility] ermatology, Main Office Address [address] [address] Care Team Providers Care Brooch Maker Novelty Name Role Phone DARIUSZ ROBB Primary Care Provider [facility] RENETTA TORRES Talend Etl Developer Assessment No assessment recorded. Plan of Treatment Reminders Order Date Submit Date Provider Last Modified By Organization Details Last Modified Time Details Appointments None recor ded. Lab biops y, skin - 1. shave bx, left shoul marcy r/o BCC 2. shave bx,le ft chest r/o BCC 3. shave bx, right lower leg r/o BCC 2023 024 [facility], [address] [place] [address], [id number], 4 17:21:10 biops y, skin - 1. shave bx, r/o SCC, Right Lower Lip 2022 023 [facility], [address] [place] [address], [id number], 3 15:35:51 biops y, skin - EXCIS ION, CHECK SIRENA NS, TAGGE D 12:00 , R/O BCC, LEFT POSTA URICU LAR 2022 023 [facility], [address] [place] [address], [address], 3 17:09:24 Referral None recor ded. Procedures None recor ded. Surgeries None recor ded. Imaging None recor ded. Medication Orders fluor ourac il 5 % topic al cream 2022 023 JOSEFINA Not available 13:51:13 Patient TargetsNo targets recorded. Patient Instructions Encounter Date Encounter Id Patient Instructions Last Modified By Organization Details Last Modified Time 09/13/2022 wound care instructions stadicherla Not available 09/13/2022 17:09:24 09/15/2022 biopsy wound care education stadicherla Not available 09/15/2022 15:35:51 09/26/2022 efudex instructions stadicherms Not available 09/26/2022 13:38:58 11/08/2022 pt will no longer be living in [facility], she has decided to travel in the country. Informed that she will schedule an appointment for f/u when she is in the area. [email or web address] Not available 11/08/2022 10:36:52 09/28/2023 [id number] cryosurgery instructions stadicherla Not available 09/28/2023 17:21:10 sun protection stadicherla Not available 09/28/2023 17:21:10 biopsy wound care education stadicherla Not available 09/28/2023 17:21:10 Reason for Referral None Reported. Results Created Date Observation Date Name Description Value Unit Range Abnormal Flag Note LastModifiedBy Organization Detail LastModifiedTime Result Notes None recorded. Problems Name Problem SNOMED Code Status Onset Date Resolution Date Notes Provider Name and Address Organization Details Recorded Time History of malignant neoplasm of skin 986249589 Active 2017 Linnea Burkett MD [address], [place], [address] , [facility] 8 19:24:51 Basal cell carcinoma of truncal skin 743179154 Active 2017 Linnea Burkett MD [address], [place], [address] , [facility] 8 14:06:48 Light and ultraviolet-i nduced dermatosis Active 2022 Linnea Burkett MD [address], [place], [address] , [facility] 3 14:43:20 Senile hyperkeratosi s 744383223 Active 2022 Linnea Burkett MD [address], [place], [address] , [facility] 3 14:43:20 Neoplasm of uncertain behavior of skin 37561336 Active 2022 [place] [address] [place] [address] [address], [place], [address] , [facility] 3 14:43:20 Actinic keratosis 127358256 Active 2022 Linnea Burkett MD [address] [place] [address] [address], [place], [address] , [facility] 3 14:43:20 Inflamed seborrheic keratosis 048619521 Active 2022 Linnea Burkett MD [address] [place] [address] [address], [place], [address] , [facility] 3 14:43:20 Melanocytic nevus 012709939 Active 2023 Linnea Burkett MD [address] [place] [address] [address], [place], [address] , [facility] 4 17:00:19 Multiple angiomatous nevi of skin 404974952 Active 2023 [place] [address] [place] [address] [address], [place], [address] , [facility] 4 17:00:19 Multiple skin tags 738532733 Active 2023 [place] [address] [place] [address] [address], [place], [address] , [facility] 17:00:19 Problem Notes None recorded. Procedures Surgical History Date Name Laterality Status Provider Name and Address Organization Details Recorded Time 2023 Cryo Surgery AK completed Sarah Waldron [facility] 09/28/2023 13:08:02 2023 ISK CRYO completed BYRON VIEIRA, COMMUNITY REPRESENTATIVE [address], [place], [address], [facility] 09/28/2023 13:28:24 2023 Shave Biopsy, Multiple completed BYRON VIEIRA, COMMUNITY REPRESENTATIVE [address], [place], [address], [facility] 09/28/2023 13:29:17 2022 Suture removal completed Alexandria Antoine [facility] 09/26/2022 13:35:26 2022 Shave Biopsy completed Linnea Burkett MD [address], [place], [address], [facility] 09/15/2022 14:52:05 2022 Excision completed Linnea Burkett MD [address], [place], [address], [facility] 09/13/2022 12:19:57 2022 Cryo Surgery AK completed Linnea Burkett MD [address], [place], [address], [facility] 08/15/2022 14:32:53 2022 ISK CRYO completed Linnea Burkett MD [address], [place], [address], [facility] 08/15/2022 14:33:37 2022 Shave Biopsy completed Linnea Burkett MD [address], [place], [address], [facility] 08/15/2022 14:33:27 2021 Cryo Surgery AK completed Nereyda Escamillarhonaty [facility] 08/10/2021 11:23:18 2021 ISK CRYO completed Linnea Burkett MD [address], [place], [address], [facility] 08/10/2021 11:26:00 2020 [place] [address] [place] [address] [address], [place], [address], [facility] 09/01/2020 16:46:58 2020 Shave [place] [address] [place] [address] [address], [place], [address], [facility] 07/27/2020 10:52:10 2019 Shave [place] [address] [place] [address] [address], [place], [address], [facility] 07/30/2019 11:46:28 2017 Electrodessication and [place]tt[place] [address] [place] [address] [address], [place], [address], [facility] 08/28/2017 14:06:18 2017 Shave Biopsy, [place] [address] [place] [address] [address], [place], [address], [facility] 08/15/2017 19:22:59 tonsilectomy/aden[place] [address] [place] [address] [address], [place], [address], [facility] 08/14/2017 15:30:44 Skin Cancer Surgery completed Saeid uBrkett MD [address] [place] [address] [address], [place], [address], [facility] 08/14/2017 15:30:49 Imaging Results None recorded. Procedure Notes None recorded. Medical Equipment None Reported. Allergies Allergen ID Allergen Name Allergen Category Reaction Reaction Severity Criticality Documentation Date Start Date Code Code System Note Provider Name and Address Organization Details Recorded Time 3912 epinephri ne medicatio n palpitati ons Not available Not available 07/27/2020 3992 RxNorm Linnea macdonald MD [address] [facility] [address], [place], [address], [facility] 10:58:08 Medications Name Sig Start Date Stop Date Status Note LastModified by Organization Details LastModified Time fluorocal cream APPLY A SMALL AMOUNT TO COVER THE LESION IN THE AFFECTED AREAS ON LOWER LIP ONCE DAILY FOR 3 TO 4 DAYS TOLERATED . 09/27 completed Not Available Not Available Not Available erythromyci n 50mg tablet #[id number] TAKE ONE TABLET BY MOUTH EVERY EVENING AT BEDTIME active Not Available Not Available No t Available erythromyci n 50mg tab #[id number] tablets TAKE 1 TABLET BY MOUTH EVERY EVENING AT BEDTIME 09/27 completed Not Available Not Available Not Available atorvastati n 20 mg tablet Take [...] Updated DateTime 09/15/2022 165.1 cm Dara Collins [facility] 09/15/2022 14:11:16 Date Recorded Body height Provider Name an d Address Organization Details Last Updated DateTime 09/28/2023 165.1 cm Sarah Waldron [facility] 09/28/2023 12:11:48 Date Recorded Body height Provider Name an d Address Organization Details Last Updated DateTime 11/08/2022 165.1 cm Jasbir Sims [facility] 11/08/2022 10:25:12 Social History Question Answer Notes LastModified by [email or web address] Details LastModified Time Tobacco Smoking Status Never Smoker Not Available [facility] 05/24/2020 03:18:55 What Was The Date Of Your Most Recent Tobacco Screening? 08/14/2017 [id number] Information not available 05/24/2020 How Much Tobacco Do You Smoke? No [id number] Information not available 05/24/2020 Sun Exposure Occasional Information not available 08/14/2017 Do You Use Sunscreen Routinely? Yes [id number] Information not available 05/24/2020 Tanning Bed Exposure No Information not available 08/14/2017 Sex: Unknown Functional Status Question Answer Note LastModified by [employer] Details LastModified Time What is your level of alcohol consumption? Occasional [id number] Information not available 05/24/2020 What is your occupation? retired formerly [employer], [employer] Information not available 08/14/2017 Mental Status None recorded. Family History Relationship Description Onset Age of this Age Resolved Age Notes LastModified by Organization Details LastModified Time Paternal Grandmother Family history of malignant neoplasm colon ca stadicherla Not available 08/14/2017 15:29:42 Maternal Uncle Family history of malignant neoplasm pancre atic ca stadicherla Not available 08/14/2017 15:30:15 Medical History Condition Response Inflammatory bowel disease N Hives N Artificial joint N Herpes N Migraines N Thyroid Problems N Arrythmia N Depression N Acne N Syphilis N [...] Diagnosis SNOMED-CT Code Diagnosis ICD10 Code Diagnosis IMO Codes Diagnosis Note 2338 Linnea Burkett MD Main Office [address] [place] [address] 4 08/14/2017 15:04:42 08/14/2017 16:05:22 Neoplasm of uncertain behavior of skin 13151426 D48.5 x2 Senile hyperkeratosis 39 5328876 L82.1 Benign. No further treatment needed.cry o x1 on mid forehead History of malignant neoplasm of skin 491846877 Z85.828 No evidence or recurrence . Advised self skin checks QM and sun protective measures QD. Light and ultraviolet-induced dermatosis 373560666 L57.8 Chronic solar dermatitis : Rec daily sun protective measures and monthly skin checks 2392 Linnea Burkett MD Main Office [address] [place] [address] 08/28/2017 13:45:21 08/28/2017 14:03:46 Basal cell carcinoma of truncal skin 734692584 C44.519 7625 Linnea Burkett MD Main Office [address] [place] [address] 07/30/2019 11:18:36 07/30/2019 12:25:13 Neoplasm of uncertain behavior of skin 07526160 D48.5 Melanocytic nevus 378799 001 D22.9 Nevi: banal appearing. Advised qmonthly skin check to note for any changes of existing lesions or for any new lesions. ABCDE's of melanoma d/w pt. Rec. daily photoprote ctive measures. Senile hyperkeratosis 39 0738663 L82.1 Benign. No further treatment needed. Light and ultraviolet-induced dermatosis 222768862 L57.8 Chronic solar dermatitis : Rec daily sun protective measures and monthly skin checks History of malignant neoplasm of skin 468459526 Z85.828 No evidence or recurrence . Advised self skin checks [place]. [address] Linnea Burkett MD Main Office [address] [address] 07/27/2020 10:21:24 07/27/2020 11:02:09 History of malignant neoplasm of skin 851851448 Z85.828 No evidence or recurrence . Advised self skin checks QM and sun protective measures QD. Melanocytic nevus 649336 001 D22.9 Nevi: banal appearing. Advised qmonthly skin check to note for any changes of existing lesions or for any new lesions. ABCDE's of melanoma d/w pt. Rec. daily photoprote ctive measures. Senile hyperkeratosis 39 5990501 L82.1 Benign. No further treatment needed. Light and ultraviolet-induced dermatosis 528656884 L57.8 Chronic solar dermatitis : Rec daily sun protective measures and monthly skin checks Multiple skin tags 05679 7009 L91.8 - benign and no txment needed unless inflamed. 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 no txment needed. Removal considered cosmetic and not covered by insurance, unless inflamed or bleeding. Seborrheic dermatitis 50 749501 L21.9 - d/w pt that only flares can be treated but cannot attain complete cure. Rec to use meds as recommende d prn for flares. Neoplasm o f uncertain behavior of skin 61609359 D48.5 11293 Linnea Burkett MD Main Office [address] [address] 09/01/2020 15:46:17 09/01/2020 16:52:34 Basal cell carcinoma of lower extremity 211226034 C44.712 34994 Linnea Burkett MD Main Office [address] [address] 09/15/2020 13:25:24 09/15/2020 13:25:48 Postoperative care 198215692 Z48.89 07884 Linnea Burkett MD Main Office [address] [place] [address] 08/10/2021 10:52:57 08/10/2021 11:26:29 Actinic keratosis L57.0 - may or may not have a blister w/ treatment. - will appear as a dry spot that peels eventually leaving a pink spot that should clear eventually . Senile hyperkeratosis 39 0568433 L82.1 Benign. No further treatment needed. Light and ultraviolet-induced dermatosis 984063048 L57.8 Chronic solar dermatitis : Rec daily sun protective measures with broad spectrum sunscreen SPF 30 or above and monthly skin checks Inflamed s eborrheic keratosis 792769831 L82.0 - may or may not have a blister w/ treatment. - will appear as a dry spot that peels eventually leaving a pink spot that should clear eventually . History of malignant neoplasm of skin 537288354 Z85.828 No evidence or recurrence . Advised self skin checks Q[place]. [address] Linnea Burkett MD Main Office [address] [address] 08/15/2022 13:57:37 08/15/2022 14:43:57 History of malignant neoplasm of skin 566847669 Z85.828 No evidence or recurrence . Advised self skin checks QM and sun protective measures QD. Neoplasm o f uncertain behavior of skin 35233380 D48.5 Actinic keratosis L57.0 - May or may not have a blister w/ treatment. - Will appear as a dry spot that peels eventually leaving a pink spot that should clear eventually . Inflamed s eborrheic keratosis 747364828 L82.0 - may or may not have a blister w/ treatment. - will appear as a dry spot that peels eventually leaving a pink spot that should clear eventually . Senile hyperkeratosis 39 4281006 L82.1 Benign. No further treatment needed. Light and ultraviolet-induced dermatosis 814752637 L57.8 Chronic solar dermatitis : Rec daily sun protective measures with broad spectrum sunscreen SPF 30 or above and monthly skin checks Linnea Burkett MD Main Office [address] [place] [address] 09/13/2022 11:23:50 09/13/2022 12:12:12 Basal cell carcinoma of neck 073879421 C44.41 18291 Linnea Burkett MD Main Office [address] [place] [address] 09/15/2022 14:07:51 09/15/2022 14:56:14 Neoplasm of uncertain behavior of skin 31413492 D48.5 Linnea Burkett MD Main Office [address] [place] [address] 09/26/2022 13:16:55 09/26/2022 13:38:25 Actinic keratosis 340348512 L57.0 - expected reaction to efudex crm d/w pt.- rec. photoprote ction during tx to avoid sun bernal Linnea Burkett MD Main Office [address] [place] [address] 11/08/2022 10:20:51 11/08/2022 10:35:07 Actinic keratosis 200417373 L57.0 -no scaling noted on the lips, rec to repeat tx in 6 months for prevention -pt aware of the expected reaction and to sun protect [address]39[address] Linnea Burkett MD Main Office [address] [place] [address] 09/28/2023 11:28:51 09/28/2023 13:26:33 Neoplasm of uncertain behavior of skin 00194698 D48.5 Actinic keratosis 007 L57.0 -no scaling noted on the lips, rec to repeat tx in 6 months for prevention -pt aware of the expected reaction and to sun protect Senile hyperkeratosis 39 9757671 L82.1 Benign. No further treatment needed. Inflamed s eborrheic keratosis 605691195 L82.0 - may or may not have a blister w/ treatment. - will appear as a dry spot that peels eventually leaving a pink spot that should clear eventually . Light and ultraviolet-induced dermatosis 294755139 L57.8 Chronic solar dermatitis : Rec daily sun protective measures with broad spectrum sunscreen SPF 30 or above and monthly skin checks Melanocytic nevus 318416 001 D22.5 Nevi: banal appearing. Advised qmonthly skin check to note for any changes of existing lesions or for any new lesions. ABCDE's of melanoma d/w pt. Rec. daily photoprote ctive measures. Multiple skin tags 68629 7009 L91.8 - benign and no txment needed unless inflamed. - pt was made aware that removal is considered cosmetic and that insurance does not cover their removal Multiple a ngiomatous nevi of skin 437345118 D18.01 discussed benign nature of the lesions and no further treatment is needed Health Concerns Section Related Observation LastModified by Organization Detai ls LastModified Time None Recorded Concern Status LastModified by Organization Details LastModified Time None Recorded Advance Directives Directive None Recorded Payers Insurance Date Sequence Insurance Name Policy Number Policy Balbuena Covered Member ID Balbuena Member ID Guarantor Name 09/27/2023 1 [employer] (MEDICARE REPLACEMENT/AD VANTAGE - HMO) [id number] Mimi Box [id number] Mimi Box 09/27/2023 1 [employer] (HMO) [id number] Mimi Box [id number] Mimi Box 09/27/2023 1 [facility] (O) Mimi Box [id number] Mimi Box 10/08/2023 1 [employer] (MEDICARE REPLACEMENT/AD VANTAGE - PPO) Mimi Box [id number] Mimi Box Notes Date Note Type Note Provider Name and Address Organization Details Recorded Time 09/13/2022 text/html Est pt presents for exc of BCC on left postauricular Linnea Burkett MD [address] [facility] [address], [place], [address], [facility] 09/13/2022 12:22:40 09/15/2022 text/html Est pt presents w/ concern of lesions on lip, onset 9 months, reports it's on and off - red-pink colored blisters form that are painful. Would like reassurance Linnea Burkett MD [address] [facility] [address], [place], [address], [facility] 09/15/2022 14:53:31 09/26/2022 text/html Est pt presents for f/u of bx proven AK on right lower lip.Also here for s/r - left post auricular MD Katelyn Flores[address] [facility] [address], [place], [address], [facility] 09/26/2022 13:39:23 11/08/2022 text/html ROS as noted in the HPI -est pt here for AK f/u, given fluorouracil cream and was having blistering across lips before but now seems to be resolved, would like eval on progress. Reports of not feeling smooth like this after a long time Linnea Burkett MD [address] [facility] [address], [place], [address], [facility] 11/08/2022 10:43:11 09/28/2023 text/html Est pt presents with a skin check. Pt presents with little spots on forearms and a spot on chest her right episcopalian. Pt has history of BCC. Linnea Burkett MD [address] [facility] [address], [place], [address], [facility] 09/28/2023 17:00:45 OBGyn Episode No OBEpisode recorded.
--- OUTSIDE RECORDS SUMMARY | 2025-06-16 16:18 | XMS_ITS | Clinical Summary ---
Author Organization [facility] Address [address] [place] [address] Care Team Providers Care Enrobing Machine Feeder Name Role Phone Unavailable Primary Care Provider Unavailabl e Source Comments [facility],non-owned Affiliates and Associated Physician Practices is amultiple site organization consisting of ambulatory clinics and hospital sitesin [place], [place], [place] and [place]. This disclosure is being madepursuant to the Care Everywhere program and may not contain all information available regarding this patient. 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
== END 2025-06-16 16:14 | disposition home or self-care (01) ==
PROVIDERS: PCP Family Medicine; Visit Provider Student in an Organized Health Care Education/Training Program
DX: R42 Dizziness and giddiness (principal)
CPT/HCPCS: 93880